=== PATIENT | female | born 1995 | race Hispanic/Latino ===

== ENCOUNTER 2017-06-20 11:14 | Emergency (ER) | payer SELFPAY ==
[2017-06-20 12:16] LABS: Urine Blood NEGATIVE (NEG); Urine Glucose NEGATIVE (NEG); Urine Protein NEGATIVE (NEG)
--- NOTE | 2017-06-20 12:48 | EDPHYS ---
Physician Documentation [facility] Name: Lacy Reyna Age: 22 yrs Sex: Female : 1995 Arrival Date: 06/20/2017 Time: 11:16 Bed 19 Private MD: ED Physician Vinny Sexton HPI: 06/20 12:28 This 22 yrs old Female presents to ER via Ambulatory with complaints of wa Abdominal Pain. 12:28 The patient presents with abdominal pain in the lower abdomen. Onset: The wa symptoms/episode began/occurred 3 day(s) ago. The symptoms do not radiate. Associated signs and symptoms: Pertinent positives: nausea and vomiting. The symptoms are described as crampy. Modifying factors: The symptoms are alleviated by nothing, the symptoms are aggravated by nothing. Severity of pain: At its worst the pain was moderate in the emergency department the pain is unchanged. The patient has not experienced similar symptoms in the past. The patient has not recently seen a physician. 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 - Social history:: Smoking status: Patient/guardian denies using tobacco. - Family history:: not pertinent. - Hospitalizations: : No recent hospitalization is reported. ROS: 12:29 Constitutional: Negative for fever, chills, and weight loss, Eyes: Negative for injury, wa pain, redness, and discharge, ENT: Negative for injury, pain, and discharge, Neck: Negative for injury, pain, and swelling, Cardiovascular: Negative for chest pain, palpitations, and edema, Respiratory: Negative for shortness of breath, cough, wheezing, and pleuritic chest pain, Back: Negative for injury and pain, MS/Extremity: Negative for injury and deformity, Skin: Negative for injury, rash, and discoloration, Neuro: Negative for headache, weakness, numbness, tingling, and seizure. 12:29 Abdomen/GI: Positive for abdominal pain, of the suprapubic area, right lower quadrant and left lower quadrant. 12:29 : Positive for pelvic pain, Negative for urinary symptoms, urinary frequency, hematuria. 12:29 All other systems are negative. Exam: 12:30 Constitutional: This is a well developed, well nourished patient who is awake, alert, wa and in no acute distress. Head/Face: Normocephalic, atraumatic. Eyes: Pupils equal round and reactive to light, extra-ocular motions intact. Lids and lashes normal. Conjunctiva and sclera are non-icteric and not injected. Cornea within normal limits. Periorbital areas with no swelling, redness, or edema. ENT: Nares patent. No nasal discharge, no septal abnormalities noted. Tympanic membranes are normal and external auditory canals are clear. Oropharynx with no redness, swelling, or masses, exudates, or evidence of obstruction, uvula midline. Mucous membranes moist. Neck: Trachea midline, no thyromegaly or masses palpated, and no cervical lymphadenopathy. Supple, full range of motion without nuchal rigidity, or vertebral point tenderness. No Meningismus. Cardiovascular: Regular rate and rhythm with a normal S1 and S2. No gallops, murmurs, or rubs. Normal PMI, no JVD. No pulse deficits. Respiratory: Lungs have equal breath sounds bilaterally, clear to auscultation and percussion. No rales, rhonchi or wheezes noted. No increased work of breathing, no retractions or nasal flaring. Back: No spinal tenderness. No costovertebral tenderness. Full range of motion. Skin: Warm, dry with normal turgor. Normal color with no rashes, no lesions, and no evidence of cellulitis. MS/ Extremity: Pulses equal, no cyanosis. Neurovascular intact. Full, normal range of motion. Neuro: Awake and alert, GCS 15, oriented to person, place, time, and situation. Cranial nerves II-XII grossly intact. Motor strength 5/5 in all extremities. Sensory grossly intact. Cerebellar exam normal. Normal gait. Psych: Awake, alert, with orientation to person, place and time. Behavior, mood, and affect are within normal limits. 12:30 Abdomen/GI: Inspection: abdomen appears normal, Bowel sounds: normal, in all quadrants, Palpation: mild abdominal tenderness, in the right lower quadrant. Vital Signs: 11:23 BP 179 / 97; Pulse 102; Resp 18; Temp 97.9; Pulse Ox 99% ; Weight 146.96 kg; Pain 10/10;hb 12:20 BP 162 / 94; Pulse 99; Resp 19; Pulse Ox 98% on R/A; rb1 MDM: 11:51 Patient medically screened. wy 12:31 Differential diagnosis: r/o UTI. r/o preg (late on menses). r/o ovarian pathology vs wa appy. 12:44 Data reviewed: vital signs, nurses notes. Test interpretation: by ED physician or wy midlevel provider: . 12:46 Response to treatment: the patient's symptoms have markedly improved after treatment. wy 12:49 ED course: refused CT and further work up. states only came to make sure she is not wa preg as a home preg was equivocal. 06/20 12:14 Order name: Urine Dipstick--Ancillary (enter results) 06/20 12:14 Order name: Urine --Ancillary (enter results) 06/20 12:17 Order name: Urine --Ancillary; Complete Time: 12:21 EDPA 06/20 12:17 Order name: Urine Dipstick-Ancillary; Complete Time: 12:21 EDPA 06/20 12:23 Order name: Basic Metabolic Panel wy 06/20 12:23 Order name: CBC with Diff wy 06/20 12:23 Order name: Creatinine for Radiology wy 06/20 12:23 Order name: Hepatic Function wy 06/20 12:23 Order name: CT Abd/Pelvis - W/Contrast wy 06/20 12:23 Order name: Urine Dipstick-Ancillary (obtain specimen); Complete Time: 12:59 wy Administered Medications: 12:57 Not Given (physician cancelled): NS 0.9% 1000 ml IV at 1 bolus Per protocol; 1000 mL rb1 bolus 12:58 Not Given (physician cancelled): TORadol 30 mg IVP once rb1 12:58 Not Given (physician cancelled): Zofran 4 mg IVP once; over 2 minutes rb1 Disposition: 06/20/17 12:47 Discharged to Home. Impression: Pelvic cramps. - Condition is Stable. - Discharge Instructions: Pelvic Pain, Female, [id number]. - Prescriptions for Ibuprofen 600 mg Oral Tablet - take 1 tablet by ORAL route every 8 hours As needed take with food; 30 tablet. - Medication Reconciliation Form, Thank You Letter, Antibiotic Education, Prescription Opioid Use form. - Follow up: Private Physician; When: 2 - 3 days. - Notes: return to ER for worsening concerns immediately. follow up with your doctor within 2-3 days Signatures: Dispatcher [employer] Rachael Pickett, RN RN [facility] Maddison aPtel RN RN Vinny Sexton MD MD wy Corrections: (The following items were deleted from the chart) 12:58 12:23 IV Saline Lock ordered. [facility] 12:59 12:23 Labs collected and sent ordered. [facility]
--- NOTE | 2017-06-20 12:48 | ER ---
Nurse's Notes [facility] Name: Lacy Reyna Age: 22 yrs Sex: Female : 1995 Arrival Date: 06/20/2017 Time: 11:16 Bed 19 Private MD: Diagnosis: Pelvic cramps Presentation: 06/20 11:21 Presenting complaint: Patient states: N/V x 1 week, sharp lower abdominal pain x 2 hb days. "I usually get like this before my period but I was supposed to start 2 days ago." LMP 05/22/17. Transition of care: patient was not received from another setting of care. Onset of symptoms is unknown. Care prior to arrival: None. 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 - Social history:: Smoking status: Patient/guardian denies using tobacco. - Family history:: not pertinent. - Hospitalizations: : No recent hospitalization is reported. Screenin:46 Abuse screen: Denies threats or abuse. Nutritional screening: No deficits noted. rb1 Tuberculosis screening: No symptoms or risk factors identified. Fall Risk None identified. Assessment: 11:46 General: Appears in no apparent distress. comfortable, obese, unkempt, Behavior is rb1 calm, cooperative, Denies fever. Pain: Complains of pain in suprapubic area Pain currently is 9 out of 10 on a pain scale. Pain began 2-3 days ago. Neuro: Level of Consciousness is awake, alert, obeys commands, Oriented to person, place, time, situation. Cardiovascular: Capillary refill < 3 seconds is brisk in bilateral fingers. Respiratory: Airway is patent Respiratory effort is even, unlabored, Respiratory pattern is regular, symmetrical. GI: Bowel sounds present X 4 quads. Abdomen is tender to palpation in suprapubic area. : No signs and/or symptoms were reported regarding the genitourinary system. Derm: Skin is dry, Skin is normal, Skin temperature is warm. Musculoskeletal: Range of motion: intact in all extremities. 11:46 : Denies vaginal bleeding. rb1 12:40 Reassessment: Patient appears in no apparent distress at this time. No changes from rb1 previously documented assessment. 12:47 Reassessment: Dr. Sexton canceled the IV and medications that were ordered because the rb1 pt. lied about why she came to the ER. Vital Signs: 11:23 BP 179 / 97; Pulse 102; Resp 18; Temp 97.9; Pulse Ox 99% ; Weight 146.96 kg; Pain 10/10;hb 12:20 BP 162 / 94; Pulse 99; Resp 19; Pulse Ox 98% on R/A; rb1 ED Course: 11:16 Patient arrived in ED. as 11:23 Triage completed. hb 11:24 Arm band placed on right wrist. hb 11:46 Patient has correct armband on for positive identification. Bed in low position. Call rb1 light in reach. Side rails up X 1. Pulse ox on. NIBP on. 11:47 Rachael Noguera, RN is Primary Nurse. rb1 11:51 Vinny Sexton MD is Attending Physician. wa 13:02 No provider procedures requiring assistance completed. Patient did not have IV access rb1 during this emergency room visit. Administered Medications: 12:57 Not Given (physician cancelled): NS 0.9% 1000 ml IV at 1 bolus Per protocol; 1000 mL rb1 bolus 12:58 Not Given (physician cancelled): TORadol 30 mg IVP once rb1 12:58 Not Given (physician cancelled): Zofran 4 mg IVP once; over 2 minutes rb1 Outcome: 12:47 Discharge ordered by . wa 13:02 Discharged to home ambulatory, with family. rb1 13:02 Condition: stable 13:02 Discharge instructions given to patient, Instructed on discharge instructions, follow up and referral plans. medication usage, Demonstrated understanding of instructions, follow-up care, medications, Prescriptions given X 1. 13:03 Patient left the ED. rb1 Signatures: Cheyanne Moreira Rebecca, RN RN [facility] Maddison Patel RN RN Vinny Sexton MD MD dc
[2017-06-20] MEDS ORDERED: ONDANSETRON 4 MG/2 ML VIAL ONE (13:09)
[2017-06-20] MEDS ORDERED: NA CHLORIDE 0.9% 0 ML ONE (13:09)
[2017-06-20] MEDS ORDERED: KETOROLAC 30 MG/ML INJ ONE (13:09)
== END 2017-06-20 13:03 | disposition home or self-care (01) ==
LOC: ER 11:14
DX: R10.2 Pelvic and perineal pain (principal)
CPT/HCPCS: 81003; 81025; 99283; J2405; J7030

== ENCOUNTER 2019-03-28 12:47 | Emergency (ER) | payer SELFPAY ==
[2019-03-28 14:12] LABS: Urine Blood 2+ (NEG); Urine Glucose NEGATIVE (NEG); Urine Protein NEGATIVE (NEG); Urine Specific Gravity 1.015 (1.005-1.030)
[2019-03-28 14:45] LABS: Absolute Lymphocytes (CBC) 1.8 K/uL (0.7-4.9); Basophils % 0.6 % (0-1.3); Hematocrit 39.2 % (36.0-45.0); MPV 8.8 fL (7.6-11.3); RBC Red Blood Cell Count 4.66 M/uL (3.86-4.86)
[2019-03-28 15:22] LABS: BUN Blood Urea Nitrogen 8 mg/dL (7-18); Bicarbonate 26 mmol/L (21-32); Glucose Level 91 mg/dL (74-106); HCG, Quantitative 8837 mIU/mL (1-3); Potassium 3.9 mmol/L (3.5-5.1); Sodium Level 139 mmol/L (136-145)
--- NOTE | 2019-03-28 16:50 | ER ---
Nurse's Notes [facility] Name: Lacy Reyna Age: 24 yrs Sex: Female : 1995 Arrival Date: 03/28/2019 Time: 12:49 Bed 30 Private MD: Diagnosis: Threatened Presentation: 03/28 12:56 Presenting complaint: Patient states: +home UPT on 03/11, reports ongoing vaginal sr5 bleeding since then. Pt concerned about miscarriage. Reports vaginal spotting with "clots" having to change pads approx 2 times per day. Transition of care: patient was not received from another setting of care. Onset of symptoms was March 11, 2019. Initial Sepsis Screen: Does the patient meet any 2 criteria? No. Patient's initial sepsis screen is negative. Does the patient have a suspected source of infection? No. Patient's initial sepsis screen is negative. Care prior to arrival: None. 12:56 Method Of Arrival: Ambulatory sr5 12:56 Acuity: FILI 3 sr5 13:05 Risk Assessment: Do you want to hurt yourself or someone else? Patient reports no rb1 desire to harm self or others. Triage Assessment: 12:58 General: Appears in no apparent distress. Behavior is calm, cooperative. Pain: Denies sr5 pain. GI: Patient currently denies cramping. : No signs and/or symptoms were reported regarding the genitourinary system. : Reports vaginal bleeding that is. 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 - Social history:: Smoking status: Patient/guardian denies using tobacco, never smoked. - Ebola Screening: : Patient negative for fever greater than or equal to 101.5 degrees Fahrenheit, and additional compatible Ebola Virus Disease symptoms. Screenin:05 Abuse screen: Denies threats or abuse. Nutritional screening: No deficits noted. rb1 Tuberculosis screening: No symptoms or risk factors identified. Fall Risk None identified. Assessment: 13:05 General: Appears in no apparent distress. comfortable, obese, Behavior is calm, rb1 cooperative, Denies fever. Pain: Denies pain. Neuro: Level of Consciousness is awake, alert, obeys commands, Oriented to person, place, time, situation. Neuro: Reports dizziness. Cardiovascular: Capillary refill < 3 seconds is brisk in bilateral fingers. Respiratory: Airway is patent Respiratory effort is even, unlabored, Respiratory pattern is regular, symmetrical. GI: Reports nausea. : Reports vaginal bleeding that is spotty, Faith tinge with small red clots. Derm: Skin is pink, warm \\T\\ dry. Musculoskeletal: Reports Bilateral breasts are tender. 14:00 Reassessment: Patient appears in no apparent distress at this time. No changes from rb1 previously documented assessment. 15:00 Reassessment: Patient appears in no apparent distress at this time. Patient and/or rb1 family updated on plan of care and expected duration. Pain level reassessed. Patient is alert, oriented x 3, equal unlabored respirations, skin warm/dry/pink. Patient denies pain at this time. 16:00 Reassessment: Patient appears in no apparent distress at this time. No changes from rb1 previously documented assessment. 16:59 Reassessment: Patient appears in no apparent distress at this time. Patient is alert, ca1 oriented x 3, equal unlabored respirations, skin warm/dry/pink. Vital Signs: 12:58 BP 140 / 114; Pulse 80; Resp 18; Temp 98.2; Pulse Ox 100% ; Weight 138.8 kg (R); Height sr5 5 ft. 4 in. (162.56 cm); Pain 0/10; 14:38 BP 142 / 87; Pulse 78; Resp 19; Pulse Ox 100% on R/A; Pain 0/10; rb1 15:38 rb1 16:47 BP 152 / 98; Pulse 81; Resp 19; Pulse Ox 98% ; Pain 0/10; rb1 12:58 Body Mass Index 52.52 (138.80 kg, 162.56 cm) sr5 15:38 Pt. is in US rb1 ED Course: 12:49 Patient arrived in ED. rg4 12:50 Jessica Subramanian FNP-C [facility]. kb 12:50 Rosalino Randle MD is Attending Physician. kb 12:58 Triage completed. sr5 12:58 Arm band placed on. sr5 13:05 Rachael Noguera, RN is Primary Nurse. rb1 13:05 Patient has correct armband on for positive identification. Bed in low position. Call rb1 light in reach. Side rails up X 1. Pulse ox on. NIBP on. 13:50 Missed attempt(s): 22 gauge in right forearm. Bleeding controlled, band aid applied, jp3 catheter tip intact. 14:05 Missed attempt(s): 22 gauge in left forearm. Bleeding controlled, band aid applied, jp3 catheter tip intact. Patient maintains SpO2 saturation greater than 95% on room air. 16:32 US Transvaginal Ob In Process Unspecified. EDMS 17:00 No provider procedures requiring assistance completed. IV discontinued, intact, ca1 bleeding controlled, No redness/swelling at site. Pressure dressing applied. Administered Medications: No medications were administered Point of Care Testing: Urine : 13:40 hCG Reading: Positive; Control Reading: Positive; rb1 Outcome: 16:49 Discharge ordered by . kb 17:00 Discharged to home ambulatory, with significant other. ca1 17:00 Condition: stable 17:00 Discharge instructions given to patient, Instructed on discharge instructions, follow up and referral plans. Demonstrated understanding of instructions, follow-up care. 17:01 Patient left the ED. ca1 Signatures: Dispatcher [employer] EDMS Jessica Subramanian, DIVISION PLANT ENGINEER-C DIVISION PLANT ENGINEER-Ckb Rachael Noguera, RN RN rb1 Mars Walker RN RN sr5 Hollie East rg4 David De Jesus jp3 Brunilda Eason RN RN ca1 Corrections: (The following items were deleted from the chart) 13:01 12:56 Presenting complaint: Patient states: +home UPT on 03/11, reports ongoing vaginal sr5 bleeding since then. Pt concerned about miscarriage. A1. Reports vaginal spotting with "clots" having to change pads approx 2 times per day sr5 16:39 16:00 BP 156 / 92; Pulse 65bpm; Resp 17bpm; Pulse Ox 99%; rb1 rb1
--- NOTE | 2019-03-28 16:51 | EDPHYS ---
Physician Documentation [facility] Name: Lacy Reyna Age: 24 yrs Sex: Female : 1995 Arrival Date: 03/28/2019 Time: 12:49 Bed 30 Private MD: ED Physician Rosalino Randle HPI: 03/28 14:31 This 24 yrs old Female presents to ER via Ambulatory with complaints of kb Vaginal Bleeding, + Preg <12wks. 14:31 The patient presents to the emergency department with vaginal bleeding, described as kb spotting. course: care: none. Previous pregnancies: in previous pregnancies patient has had. Associated signs and symptoms: Pertinent positives: vaginal bleeding. The patient has not experienced similar symptoms in the past. The patient has not recently seen a physician. Pt reports she took a test on 03/11/19 that was positive. Has had vaginal bleeding since then. Reports it was heavy for a day, but has been intermittent spotting since then. Had miscarriage 5 months ago. . 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 - Social history:: Smoking status: Patient/guardian denies using tobacco, never smoked. - Ebola Screening: : Patient negative for fever greater than or equal to 101.5 degrees Fahrenheit, and additional compatible Ebola Virus Disease symptoms. ROS: 14:30 Constitutional: Negative for fever, chills, and weight loss, ENT: Negative for injury, kb pain, and discharge, Neck: Negative for injury, pain, and swelling, Cardiovascular: Negative for chest pain, palpitations, and edema, Respiratory: Negative for shortness of breath, cough, wheezing, and pleuritic chest pain, Abdomen/GI: Negative for abdominal pain, nausea, vomiting, diarrhea, and constipation, Back: Negative for injury and pain, MS/Extremity: Negative for injury and deformity, Skin: Negative for injury, rash, and discoloration, Neuro: Negative for headache, weakness, numbness, tingling, and seizure. 14:30 : Positive for vaginal bleeding. Exam: 14:31 Constitutional: This is a well developed, well nourished patient who is awake, alert, kb and in no acute distress. Head/Face: Normocephalic, atraumatic. ENT: Nares patent. No nasal discharge, no septal abnormalities noted. Tympanic membranes are normal and external auditory canals are clear. Oropharynx with no redness, swelling, or masses, exudates, or evidence of obstruction, uvula midline. Mucous membranes moist. Neck: Trachea midline, no thyromegaly or masses palpated, and no cervical lymphadenopathy. Supple, full range of motion without nuchal rigidity, or vertebral point tenderness. No Meningismus. Chest/axilla: Normal chest wall appearance and motion. Nontender with no deformity. No lesions are appreciated. Cardiovascular: Regular rate and rhythm with a normal S1 and S2. No gallops, murmurs, or rubs. Normal PMI, no JVD. No pulse deficits. Respiratory: Lungs have equal breath sounds bilaterally, clear to auscultation and percussion. No rales, rhonchi or wheezes noted. No increased work of breathing, no retractions or nasal flaring. Abdomen/GI: Soft, non-tender, with normal bowel sounds. No distension or tympany. No guarding or rebound. No evidence of tenderness throughout. Back: No spinal tenderness. No costovertebral tenderness. Full range of motion. Skin: Warm, dry with normal turgor. Normal color with no rashes, no lesions, and no evidence of cellulitis. MS/ Extremity: Pulses equal, no cyanosis. Neurovascular intact. Full, normal range of motion. Neuro: Awake and alert, GCS 15, oriented to person, place, time, and situation. Cranial nerves II-XII grossly intact. Motor strength 5/5 in all extremities. Sensory grossly intact. Cerebellar exam normal. Normal gait. Vital Signs: 12:58 BP 140 / 114; Pulse 80; Resp 18; Temp 98.2; Pulse Ox 100% ; Weight 138.8 kg (R); Height sr5 5 ft. 4 in. (162.56 cm); Pain 0/10; 14:38 BP 142 / 87; Pulse 78; Resp 19; Pulse Ox 100% on R/A; Pain 0/10; rb1 15:38 rb1 16:47 BP 152 / 98; Pulse 81; Resp 19; Pulse Ox 98% ; Pain 0/10; rb1 12:58 Body Mass Index 52.52 (138.80 kg, 162.56 cm) sr5 15:38 Pt. is in US rb1 MDM: 13:01 Patient medically screened. kb 14:30 Data reviewed: vital signs, nurses notes. Data interpreted: Pulse oximetry: on room air kb is 100 %. Interpretation: normal. 16:49 Counseling: I had a detailed discussion with the patient and/or guardian regarding: the kb historical points, exam findings, and any diagnostic results supporting the discharge/admit diagnosis, lab results, radiology results, the need for outpatient follow up, an OB/Gyne specialist, to return to the emergency department if symptoms worsen or persist or if there are any questions or concerns that arise at home. 03/28 12:59 Order name: Quantitative Hcg; Complete Time: 15:26 kb 03/28 12:59 Order name: Abo/rh Typing; Complete Time: 15:19 kb 03/28 12:59 Order name: Basic Metabolic Panel; Complete Time: 15:26 kb 03/28 12:59 Order name: CBC with Diff; Complete Time: 14:50 kb 03/28 13:59 Order name: Urine Dipstick--Ancillary (enter results); Complete Time: 14:15 eb 03/28 13:59 Order name: Urine --Ancillary (enter results); Complete Time: 14:15 eb 03/28 12:59 Order name: Urine Test (obtain specimen); Complete Time: 13:30 kb 03/28 12:59 Order name: IV Saline Lock; Complete Time: 14:48 kb 03/28 12:59 Order name: Labs collected and sent; Complete Time: 14:48 kb 03/28 12:59 Order name: NPO; Complete Time: 14:48 kb 03/28 12:59 Order name: Urine Dipstick-Ancillary (obtain specimen); Complete Time: 13:29 kb 03/28 15:26 Order name: US Transvaginal Ob kb 03/28 16:08 Order name: ABO/RH no charge; Complete Time: 16:13 EDMS Administered Medications: No medications were administered Point of Care Testing: Urine : 13:40 hCG Reading: Positive; Control Reading: Positive; rb1 Disposition: 19:06 Co-signature as Attending Physician, Rosalino Randle MD. rn Disposition: 03/28/19 16:49 Discharged to Home. Impression: Threatened . - Condition is Stable. - Discharge Instructions: Vaginal Bleeding During , First Trimester, Threatened Miscarriage, [id number], Pelvic Rest. - Medication Reconciliation Form, Thank You Letter, Antibiotic Education, Prescription Opioid Use form. - Follow up: Emergency Department; When: As needed; Reason: Worsening of condition. Follow up: Private Physician; When: 2 - 3 days; Reason: Recheck today's complaints, Continuance of care, Re-evaluation by your physician. Signatures: Dispatcher [employer] EDJessica Basilio, VP HR DIVERSITY-C VP HR DIVERSITY-Rosalino Suresh MD MD rn Resecker, Mars RN RN sr5 Brunilda Eason RN RN ca1 Corrections: (The following items were deleted from the chart) 17:01 16:49 03/28/2019 16:49 Discharged to Home. Impression: Threatened . Condition ca1 is Stable. Forms are Medication Reconciliation Form, Thank You Letter, Antibiotic Education, Prescription Opioid Use. Follow up: Emergency Department; When: As needed; Reason: Worsening of condition. Follow up: Private Physician; When: 2 - 3 days; Reason: Recheck today's complaints, Continuance of care, Re-evaluation by your physician. kb
--- NOTE | 2019-03-28 17:00 | RAD REPORT ---
EXAM DESCRIPTION: US - Transvaginal OB - 03/28/2019 4:31 pm CLINICAL HISTORY: , vaginal bleeding COMPARISON: None. FINDINGS: Both ovaries are identified with normal blood flow in the ovarian stroma. No adnexal mass identified. A normal shaped intrauterine gestational sac is present in the fundus. Yolk sac is present with a sma ll pole. Heart rate was difficult to obtain but appears to measure 123 BPM. Tyler-rump length c orresponds to 6 week 1 day age. Calculated HUMBERTO would be 11/20/2019. Fluid is present in the cervix an d lower uterine segment. IMPRESSION: Single 6 week 1 day IUP in the fundal portion of the endometrial cavity. Heart rate is 1 23 BPM. No large hematoma or mass in the endometrial cavity. Patient does have fluid in the cervical canal an d lower uterine segment. This fluid is not typical and is still considered at risk. No ovarian or adnexal abnormality.
[2019-03-28 17:54] VITALS: TEMP 98.2
[2019-03-28 17:57] VITALS: BP 152/98; O2SAT 98
== END 2019-03-28 17:01 | disposition home or self-care (01) ==
LOC: ER 12:47
DX: O20.0 Threatened abortion (principal); Z3A.01 Less than 8 weeks gestation of pregnancy
CPT/HCPCS: 36415; 76817; 80048; 81003; 81025; 84702; 85025; 86900; 86901; 99284

== ENCOUNTER 2019-04-25 10:16 | Emergency (ER) | payer OTHER, SELFPAY ==
--- OUTSIDE RECORDS SUMMARY | 2019-04-25 10:19 | XMS REPORT | Continuity of Care Document ---
:1995 Author Organization [facility] Address [address] [place] [address] Phone Unavailable Care Team Providers Name Role Phone PHYSICIAN, NO Primary Care Physician Unavailable Insurance Providers Guarantor Lacy Granado Address [address] [place] [address] Email NA Payer Self Pay Insurance Subscriber's Name Lacy Granado Relationship Self / Same As Patient Group Number NA Group Name NA Advance Directives Directive Response Recorded Date/Time Advance Directives No 10/13/15 5:25am Advance Directive on File No 01/21/18 7:13pm Directive to Physicians/Living Will No 10/13/15 5:25am Health Care Proxy No 10/13/15 5:25am Organ Donor No 10/13/15 5:50am Medical Power of Quality Rep No 10/13/15 5:25am Patient/Family Given Education Material R/T Y - 01/21/18..MA 01/21/18 8: 39pm Directives? Chief Complaint and Reason for Visit Chief Complaint HEENTL Reason for Visit Sinusitis Bronchitis Problems Medical Problem Onset Date Status Anxiety Unknown Acute Chest pain Unknown Acute Past Problems Medical Problem Onset Date Status Bronchitis Unknown Acute DUB (dysfunctional uterine bleeding) Unknown Acute Sinusitis Unknown Acute Medications No medication information available. Social History Social History Problem Response Recorded Date/Time Onset Date Status Hx Physical Abuse No 01/21/2018 7:13pm Not Applicable Not Applicable Smoking Status Start Date Stop Date Never smoker Hospital Discharge Instructions No hospital discharge instruction information available. Plan of Care Discharge Date 01/21/18 8:35pm Instructions/Education Provided Sinusitis, Adult Acute Bronchitis, Adult, [id number] Forms Provided Portal Welcome Letter Prescriptions See Medication Section Referrals NO PHYSICIAN Additional Instructions/Education Prednisone 20mg 2 tabs. twice a day (x5 days ) Ciprofloxacin 500mg 1 tab. twice a day OFF FROM DUTY TOMORROW Functional Status No functional status information available. Allergies, Adverse Reactions, Alerts Allergen Type Severity Reaction Status Last Updated Codeine ([id number]) Allergy Unknown Active 12/27/16 Immunizations No immunization information available. Vital Signs Acute Vital Signs Vital Response Date/Time Blood Pressure 138/84 mm Hg 01/21/2018 8:55pm Pulse Pulse Rate (adult) 82 beats per minute (60 - 100) 01/21/2018 8:55pm Respiratory Rate 16 breaths per minute (10 - 24) 01/21/2018 8:55pm Temperature Source Oral 01/21/2018 8:55pm Height 5 ft 4 in 01/21/2018 7:13pm Weight 299 lb 01/21/2018 7:13pm Body Mass Index 51.3 kg/m^2 01/21/2018 7:13pm Results No relevant diagnostic test, laboratory data and/or discharge summary information available. Procedures No procedure information available. Encounters Encounter Location Arrival/Admit Date Discharge/Depart Date Attending Provider Departed [place] 01/21/18 7:05pm 01/21/18 8:35pm [facility] GALLO MD [facility] Recent Diagnosis
--- OUTSIDE RECORDS SUMMARY | 2019-04-25 10:19 | XMS REPORT ---
:1995 Author Organization [facility] Address [address] [place] [address] Dr. Gabriel. [address] [place] [id number] Care Team Providers Name Role Phone DR SUSANNE BENNETT Unavailable Unavailable Problems This patient has no known problems. Allergies, Adverse Reactions, Alerts This patient has no known allergies or adverse reactions. Medications This patient has no known medications. Encounters Start End Encounter Admission Attending Care Care Encounter Date/Time Date/Time Type Type Clinicians Facility Department ID 2018-10-13 2018-10-14 Emergency E SUSANNE BENNETT [facility] [id number] 21:06:00 00:00:00 2018-10-10 2018-10-10 Emergency [facility] [id number] 01:19:37 01:19:37 2018-10-09 2018-10-[address] [facility] [id number] 22:50:46 22:50:46 Results Test Description Test Time Test Comments Text Results Atomic Results Result Comments BETA HCG QUANTITATIVE SERUM *WW* 2018-10-13 23:21:00 Test Item Value Reference Range Comments BHCG QUANT (test code=A17) 2371.00 mIU/mL BHCGQ (test code=BHCQ) QUANTITATIVE BHCG RESULT INTERPRETATION APPROXIMATE APPROXIMATE GESTATIONAL AGE HCG RANGE (WEEKS) (mIU/mL) 0.2 - 1 5 - 50 1 - 2 50 - 500 2 - 3 100 - 5,000 3 - 4 500 - 10,000 4 - 5 1,000 - 50,000 5 - 6 10,000 - 100,000 6 - 8 15,000 - 200,000 8 - 12 10,000 - 100,000 PRO TIME AND PTT 2018-10-13 22:57:00 Test Item Value Reference Range Comments PT (test code=TT) 11.8 s 9.8-13.6 INR (test code=INR) 1.0 INRH (test code=INRH) SUGGESTED THERAPEUTIC RANGE FOR INR: 2.5 - 3.5 For Patients with Prosthetic Valves or Patients with recurrent Thromboembolic Events 2.0 - 3.0 For Most Other Applications PTT (test code=PTT) 30.7 s 20.2-38.0 PTTH (test code=PTTH) To monitor the effectiveness of heparin, we offer the Anti-Xa (Heparin Assay). It can be used for either unfractionated or LMW Heparin. Order Code is ANTI-XA BASIC METABOLIC PANEL 2018-10-13 22:49:00 Test Item Value Reference Range Comments GLUCOSE (test code=06D) 93 mg/dL 75-100 SODIUM (test code=01A) 136 mmol/L 136-145 POTASSIUM (test code=01B) 4.1 mmol/L 3.6-5.1 CHLORIDE (test code=04A) 104 mmol/L 98-107 CO2 (test code=02A) 25 mmol/L 22-32 ANION GAP (test code=ANG) 11.1 mmol/L BUN (test code=05D) 8 mg/dL 7-18 CREATININE (test code=03E) 0.7 mg/dL 0.4-1.1 BUN/CREA (test code=BCR) 11 12-20 CALCIUM (test code=09D) 8.6 mg/dL 8.3-9.5 CBC (INCLUDES AUTOMATED DIFFERENTIAL)*[id number] 22:40:00 Test Item Value Reference Range Comments WBC (test code=WBC) 10.4 10\S\3/uL 4.5-11.0 RBC (test code=RBC) 4.55 10\S\6/uL 4.30-5.70 HGB (test code=HBG) 12.8 g/dL 12.0-15.5 HCT (test code=HCT) 38.6 % 35.0-44.0 MCV (test code=MCV) 84.8 fL 81.0-99.0 MCH (test code=MCH) 28.1 pg 27.0-31.0 MCHC (test code=MCHC) 33.2 g/dL 32.0-36.0 RDW (test code=RDW) 13.7 % 11.5-14.5 PLT (test code=PLT) 347 10\S\3/uL 130-400 MPV (test code=MPV) 10.2 fL 9.4-12.4 NEUTROP # (test code=NE#) 7.8 10\S\3/uL 1.6-8.0 LYMPH # (test code=LY#) 1.8 10\S\3/uL 1.1-3.5 MONOCYTE # (test code=MO#) 0.6 10\S\3/uL 0.0-1.1 EOSINOPH # (test code=EO#) 0.1 10\S\3/uL 0.0-0.7 BASOPHIL # (test code=BA#) 0.0 10\S\3/uL 0.0-0.3 IG # (test code=IG#) 0.03 10\S\3/uL 0.00-0.06 NRBC # (test code=NRBC#) 0.00 10\S\3/uL 0.00-0.01 NEUTROPH % (test code=NE%) 75.0 % 35.0-73.0 LYMPH % (test code=LY%) 17.4 % 20.0-55.0 MONO % (test code=MO%) 5.9 % 2.5-10.0 EOSINOPH % (test code=EO%) 1.2 % 0.0-5.0 BASOPHIL % (test code=BA%) 0.2 % 0.0-2.0 IG % (test code=IG%) 0.3 % 0.0-0.8 NRBC% (test code=NRBC%) 0.0 % 0.0-0.2 MANDIFF (test code=WMDIFF) NO NO RBC MORPH (test code=WRBCMOR) NORMAL URINALYSIS WITH MICRO *WW*2018-10-13 22:24:00 Test Item Value Reference Range Comments COLOR (test code=COLU) YELLOW YELLOW CLARITY (test code=CLA) SLT HAZY CLEAR GLUCOSE UR (test code=UA GLUCOSE) NEGATIVE NEGATIVE BILI UR (test code=BILE) NEGATIVE NEGATIVE KETONES UR (test code=SNODRA) NEGATIVE NEGATIVE SP GRAVITY (test code=SPGR) 1.010 1.005-1.030 PH UR (test code=PH) 6.0 4.5-8.0 PROTEIN UR (test code=PU) NEGATIVE NEGATIVE UROBIL UR (test code=UROQ) 0.2 EU/dL 0.2-1.0 NITRITE UR (test code=NITRITE) NEGATIVE NEGATIVE BLOOD UR (test code=UA BLOOD) 3+ NEGATIVE LEUK ES UR (test code=LEUK) NEGATIVE NEGATIVE WBC UR (test code=UWBC) 1 /HPF 0-5 RBC UR (test code=URBC) 4 /HPF 0-2 EPITH UR (test code=UEPC) NONE /LPF FEW BACTERIA UR (test code=UBACT) FEW /HPF NONE CAST UR (test code=CAST) /LPF NONE CRYSTAL UR (test code=CRYU) / LPF NONE MUCUS UR (test code=MUC) / HPF NONE AMORPH UR (test code=BETY) / HPF NONE TRICH UR (test code=UTRICH) /HPF NONE YEAST UR (test code=UY) /HPF NONE SPERM UR (test code=USPERM) /HPF NONE
--- OUTSIDE RECORDS SUMMARY | 2019-04-25 10:20 | XMS REPORT | Summary of Care ---
:1995 Author Name Arturo Callahan Address Unavailable Unavailable , Care Team Providers Name Role Phone PAM NEWSOME M.D. Unavailable Unavailable PAM NEWSOME MD Unavailable Unavailable Unavailable Unavailable Unavailable Functional Status Name Dates Details Functional status health issues are not documented Status: Name Dates Details Cognitive status health issues are not documented Status: Problems Name Dates Details Abnormal vaginal bleeding (623.8, N93.9) Status: Active Screening for diabetes mellitus (V77.1, Z13.1) Status: Active Miscarriage (634.90, O03.9) Status: Active Miscarriage (634.90, O03.9) Status: Active Medications Name Dates Details Vitamin 27-0.8 MG Oral Tablet TAKE 1 TABLET DAILY DIRECTED. Quantity: 90 Refills: 2 PAM NEWSOME M.D. Start : 07-Nov-2018 Active Allergies and Adverse Reactions Name Dates Details Allergy history not documented Status: Past Medical History Name Dates Details History of Elevated blood pressure reading (796.2, R03.0) Status: Resolved Procedures Procedure Dates Details History of Section Completed Immunization Name Dates Details Immunizations not documented Family History Name Dates Details Family history of malignant neoplasm of ovary (V16.41, Z80.41) Status: Active Name Dates Details Family history of malignant neoplasm of ovary (V16.41, Z80.41) Status: Active Name Dates Details Family history of diabetes mellitus (V18.0, Z83.3) Status: Active Family history of hypertension (V17.49, Z82.49) Status: Active Family history of malignant neoplasm of ovary (V16.41, Z80.41) Status: Active Social History Name Dates Details Unknown if ever smoked Vital Signs Date Test Result Details No Known Vitals to report Results Date Description Value Details Results not documented Plan of Care Name Dates Details Planned Observations Planned Goals not documented Instructions Name Dates Details Instructions not documented Encounters Appointment; PAM NEWSOME M.D. On: 07-Nov-2018 10:40 Encounter Diagnosis: Problem not documented Appointment; PAM NEWSOME M.D. On: 10-Dec-2018 10:40 Encounter Diagnosis: Problem not documented
[2019-04-25 10:50] LABS: Urine Blood NEGATIVE (NEG); Urine Glucose NEGATIVE (NEG); Urine Protein NEGATIVE (NEG); Urine Specific Gravity 1.015 (1.005-1.030)
[2019-04-25 11:09] LABS: Urine Bacteria 20-50 /HPF (<20); Urine Culture Reflex Order NOT NEEDED; Urine RBC <5 /HPF (NONE SEEN)
[2019-04-25 11:12] LABS: Basophils % 0.4 % (0-1.3); Hematocrit 36.1 % (36.0-45.0); Lymphocytes % 20.6 % (15.3-44.8); MPV 8.7 fL (7.6-11.3); RBC Red Blood Cell Count 4.31 M/uL (3.86-4.86)
[2019-04-25 11:50] LABS: BUN Blood Urea Nitrogen 6 mg/dL (7-18); Bicarbonate 22 mmol/L (21-32); Glucose Level 103 mg/dL (74-106); HCG, Quantitative 34153 mIU/mL (1-3); Potassium 3.6 mmol/L (3.5-5.1); Sodium Level 137 mmol/L (136-145)
--- NOTE | 2019-04-25 12:22 | RAD REPORT ---
EXAM DESCRIPTION: US - Transvaginal OB - 04/25/2019 11:56 am CLINICAL HISTORY: Abd pain;Vaginal bleeding COMPARISON: Transvaginal OB dated 03/28/2019 FINDINGS: A single gestational sac is seen within the uterus. The shape of the sac is within normal limits for gestational age. Within the sac is a single pole with crown-rump length of 3 cm, cor relating to estimated gestational age of 9 weeks 4 days. Estimated date of delivery is 11/24/2019. Heart rate is 164 BPM.. The placenta is not yet developed due to early gestational age. The maternal adnexa and right ovary are within normal limits. Normal Doppler blood flow was demonstra [place] to the right ovary. The left ovary was obscured by bowel gas. IMPRESSION: Single live early intrauterine gestation with estimated gestational age of 9 weeks 4 day s, HUMBERTO 11/24/2019.
--- NOTE | 2019-04-25 12:40 | EDPHYS ---
Physician Documentation [facility] Name: Lacy Reyna Age: 24 yrs Sex: Female : 1995 Arrival Date: 04/25/2019 Time: 10:23 Bed 15 Private MD: ED Physician Rosalino Randle HPI: 04/25 10:52 This 24 yrs old Female presents to ER via Ambulatory with complaints of cp Abdominal Cramping, Back Pain. 10:52 The patient presents to the emergency department with abdominal pain, of the right cp lower quadrant and left lower quadrant, vaginal bleeding, that is light. course: care: none, Ultrasound: the patient had an ultrasound, on March 28, 2019. Previous pregnancies: in previous pregnancies patient has had . 10:52 Associated signs and symptoms: Pertinent positives: vaginal bleeding, Pertinent cp negatives: chest pain, diarrhea, dysuria, fever, ruptured membranes, vomiting. MEDICAL SCHEDULER: 10:37 LMP N/A - Irregular menses ss 10:52 3, Full Term 1, 1, Living 1, Verified cp Historical: - Allergies: 10:37 No Known Allergies; ss - Home Meds: 10:37 None [Active]; ss - PMHx: 10:37 Hypertension; ss - PSHx: 10:37 ; ss - Immunization history:: Adult Immunizations up to date. - Social history:: Smoking status: Patient denies any tobacco usage or history of. - Ebola Screening: : Patient denies exposure to infectious person Patient denies travel to an Ebola-affected area in the 21 days before illness onset. ROS: 10:54 Constitutional: Negative for body aches, chills, fever, poor PO intake. cp 10:54 Cardiovascular: Negative for chest pain. 10:54 Respiratory: Negative for cough, shortness of breath, wheezing. 10:54 Abdomen/GI: Positive for abdominal pain, Negative for vomiting, diarrhea, constipation, black/tarry stool, rectal bleeding. 10:54 Back: Positive for pain at rest, pain with movement, of the lumbar area. 10:54 : Positive for vaginal bleeding. 10:54 Neuro: Negative for altered mental status, dizziness, headache, numbness, weakness. 10:54 All other systems are negative. Exam: 11:00 Constitutional: The patient appears in no acute distress, alert, awake, non-toxic, well cp developed, well nourished, obese. 11:00 Head/Face: Normocephalic, atraumatic. cp 11:00 Eyes: Periorbital structures: appear normal, Conjunctiva: normal, no exudate, no injection, Sclera: no appreciated abnormality, Lids and lashes: appear normal, bilaterally. 11:00 ENT: External ear(s): are unremarkable, Nose: is normal, Mouth: Lips: moist, Oral mucosa: moist, Posterior pharynx: Airway: no evidence of obstruction, patent. 11:00 Neck: ROM/movement: is normal, is supple, without pain, no range of motions limitations, no nuchal rigidity. 11:00 Chest/axilla: Inspection: normal. 11:00 Cardiovascular: Rate: normal, Rhythm: regular. 11:00 Respiratory: the patient does not display signs of respiratory distress, Respirations: normal, no use of accessory muscles, no retractions, labored breathing, is not present, Breath sounds: are clear throughout, no decreased breath sounds. 11:00 Abdomen/GI: Inspection: obese Bowel sounds: active, all quadrants, Palpation: soft, in all quadrants, mild abdominal tenderness, in the right lower quadrant and left lower quadrant, rebound tenderness, is not appreciated, voluntary guarding, is not appreciated, involuntary guarding, is not appreciated. 11:00 Back: pain, that is mild, of the low back area, ROM is normal. 11:00 Skin: no rash present. 11:00 Neuro: Orientation: to person, place \T\ time. Mentation: is normal. 12:35 : Pelvic Exam: The exam is refused by the patient/guardian. The risks and cp consequences are understood by the patient. Vital Signs: 10:37 Resp 21; Weight 137.89 kg; Height 5 ft. 3 in. (160.02 cm); Pain 8/10; ss 10:38 BP 148 / 94; Pulse 99; Temp 98.4(O); Pulse Ox 99% on R/A; ss 10:37 Body Mass Index 53.85 (137.89 kg, 160.02 cm) ss MDM: 10:39 Patient medically screened. cp 11:00 Differential diagnosis: STD, threatened Ab, inevitable Ab, complete Ab, retained Ab, cp ectopic . 12:40 Data reviewed: vital signs, nurses notes, lab test result(s), radiologic studies, cp ultrasound. 12:40 Counseling: I had a detailed discussion with the patient and/or guardian regarding: the cp historical points, exam findings, and any diagnostic results supporting the discharge/admit diagnosis, lab results, radiology results, the need for outpatient follow up, for definitive care, an OB/Gyne specialist, to return to the emergency department if symptoms worsen or persist or if there are any questions or concerns that arise at home. Response to treatment: the patient's symptoms have markedly improved after treatment. ED course: VSS. Discussed results of labs and today's US. Will discharge to home with pelvic rest precautions and recommend f/u with MEDICAL SCHEDULER. 04/25 10:46 Order name: Quantitative Hcg; Complete Time: 11:53 04/25 11:53 Interpretation: Reviewed. 04/25 10:46 Order name: Basic Metabolic Panel; Complete Time: 11:53 04/25 11:53 Interpretation: Normal except: BUN 6. 04/25 10:46 Order name: CBC with Diff; Complete Time: 11:42 04/25 11:44 Interpretation: Reviewed. 04/25 10:47 Order name: Urine Dipstick--Ancillary (enter results); Complete Time: 10:52 [facility] 04/25 10:52 Interpretation: Reviewed. 04/25 10:47 Order name: Urine --Ancillary (enter results); Complete Time: 10:52 em 04/25 10:52 Interpretation: Reviewed. 04/25 10:54 Order name: Urine Microscopic Only; Complete Time: 11:42 04/25 11:42 Interpretation: Normal except: UBACT 20-50; SQEPI 20-50. 04/25 10:46 Order name: Urine Test (obtain specimen); Complete Time: 11:00 04/25 10:46 Order name: Labs collected and sent; Complete Time: 11:09 04/25 11:13 Order name: Transvaginal OB; Complete Time: 12:31 EDME 04/25 10:46 Order name: NPO; Complete Time: 11:00 04/25 10:46 Order name: Urine Dipstick-Ancillary (obtain specimen); Complete Time: 11:01 cp Administered Medications: 12:35 CANCELLED (Physician Discretion): Rocephin 1 grams IV at bolus once; Given slow IV push cp per pharmacy instructions 12:50 Drug: Tylenol 1000 mg Route: PO; 12:51 Follow up: Response: No adverse reaction; Medication administered at discharge. ss 12:50 Drug: Macrobid 100 mg Route: PO; ss 12:50 Follow up: Response: No adverse reaction; Medication administered at discharge. Disposition: 13:00 Chart complete. cp 15:14 Co-signature as Attending Physician, Rosalino Randle MD. rn Disposition: 04/25/19 12:40 Discharged to Home. Impression: Urinary tract infection, site not specified, related conditions, unspecified, first trimester, Low back pain, Lower abdominal pain, unspecified, Threatened . - Condition is Stable. - Discharge Instructions: Abdominal Pain During , Back Pain, Adult, Threatened Miscarriage, Urinary Tract Infection, Adult, Pelvic Rest. - Prescriptions for Macrobid 100 mg Oral Capsule - take 1 capsule by ORAL route every 12 hours for 7 days; 14 capsule. - Medication Reconciliation Form, Thank You Letter, Antibiotic Education, Prescription Opioid Use form. - Follow up: Private Physician; When: 2 - 3 days; Reason: Recheck today's complaints. - Problem is new. - Symptoms have improved. Signatures: Dispatcher [employer] Rosalino Caldwell MD MD rn Smirch, Shelby, RN RN ss Page, Corey, PA PA cp Corrections: (The following items were deleted from the chart) 11:13 10:56 OB Complete+US.RAD.BRZ ordered. [facility] 12:35 11:49 Rocephin 1 grams IV at bolus once; Given slow IV push per pharmacy instructions cp ordered. cp 12:43 12:40 04/25/2019 12:40 Discharged to Home. Impression: Urinary tract infection, site cp not specified; related conditions, unspecified, first trimester; Low back pain; Lower abdominal pain, unspecified. Condition is Stable. Forms are Medication Reconciliation Form, Thank You Letter, Antibiotic Education, Prescription Opioid Use. Follow up: Private Physician; When: 2 - 3 days; Reason: Recheck today's complaints. Problem is new. Symptoms have improved. cp 12:52 12:43 04/25/2019 12:40 Discharged to Home. Impression: Urinary tract infection, site ss not specified; related conditions, unspecified, first trimester; Low back pain; Lower abdominal pain, unspecified; Threatened . Condition is Stable. Discharge Instructions: Abdominal Pain During , Urinary Tract Infection, Adult, Threatened Miscarriage, Pelvic Rest. Prescriptions for Macrobid 100 mg Oral Capsule - take 1 capsule by ORAL route every 12 hours for 7 days; 14 capsule. and Forms are Medication Reconciliation Form, Thank You Letter, Antibiotic Education, Prescription Opioid Use. Follow up: Private Physician; When: 2 - 3 days; Reason: Recheck today's complaints. Problem is new. Symptoms have improved. cp
--- NOTE | 2019-04-25 12:40 | ER ---
Nurse's Notes [facility] Name: Lacy Reyna Age: 24 yrs Sex: Female : 1995 Arrival Date: 04/25/2019 Time: 10: Bed 15 Private MD: Diagnosis: Urinary tract infection, site not specified; related conditions, unspecified, first trimester;Low back pain;Lower abdominal pain, unspecified;Threatened Presentation: 04/25 10:34 Presenting complaint: Patient states: Irregular menstrual cycle since 02/19. C/o abd ss cramping and light vaginal bleeding x 2 months. Pt reports she was seen in ER about a month ago for same symptoms, was told she was having a threatened miscarriage and to follow up. Pt has been unable to follow up. Transition of care: patient was not received from another setting of care. Onset of symptoms was February 2019. Risk Assessment: Do you want to hurt yourself or someone else? Patient reports no desire to harm self or others. Initial Sepsis Screen: Does the patient meet any 2 criteria? RR > 20 per min. HR > 90 bpm. Does the patient have a suspected source of infection? No. Patient's initial sepsis screen is negative. Care prior to arrival: None. 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 - Social history:: Smoking status: Patient denies any tobacco usage or history of. - Ebola Screening: : Patient denies exposure to infectious person Patient denies travel to an Ebola-affected area in the 21 days before illness onset. Screenin:46 Abuse screen: Denies threats or abuse. Denies injuries from another. Nutritional ss screening: No deficits noted. Tuberculosis screening: Never had TB. Fall Risk None identified. Assessment: 10:43 General: Appears in no apparent distress. comfortable, obese, Behavior is calm, ss cooperative, Denies fever, feeling ill, fatigue, chills. Pain: Complains of pain in suprapubic area Pain currently is 8 out of 10 on a pain scale. Quality of pain is described as crampy, Pain began 2 months ago Is intermittent. Neuro: Level of Consciousness is awake, alert, obeys commands, Oriented to person, place, time, situation. Respiratory: Airway is patent Respiratory effort is even, unlabored. GI: Bowel sounds present X 4 quads. Abd is soft and non tender X 4 quads. Reports nausea, Patient currently denies diarrhea, vomiting. : Reports light vaginal bleeding x 2 months Denies burning with urination. EENT: Oral mucosa is moist. Derm: Skin is intact, is healthy with good turgor, Skin is dry, Skin is pink, warm \T\ dry. normal. Musculoskeletal: Circulation, motion, and sensation intact. Range of motion: intact in all extremities, Swelling absent. 11:45 Reassessment: Patient appears in no apparent distress at this time. Patient and/or ss family updated on plan of care and expected duration. Pain level reassessed. Patient is alert, oriented x 3, equal unlabored respirations, skin warm/dry/pink. 12:30 Reassessment: Patient appears in no apparent distress at this time. No changes from previously documented assessment. Vital Signs: 10:37 Resp 21; Weight 137.89 kg; Height 5 ft. 3 in. (160.02 cm); Pain 8/10; ss 10:38 BP 148 / 94; Pulse 99; Temp 98.4(O); Pulse Ox 99% on R/A; ss 10:37 Body Mass Index 53.85 (137.89 kg, 160.02 cm) ED Course: 10:23 Patient arrived in ED. mr 10:31 Vladimir Mcneal PA is PHCP. cp 10:31 Rosalino Randle MD is Attending Physician. cp 10:37 Triage completed. ss 10:37 Arm band placed on right wrist. ss 10:46 Patient has correct armband on for positive identification. Bed in low position. Call light in reach. 11:00 Maribeth Payne, PADDY is Primary Nurse. 11:06 Initial lab(s) drawn, by me, sent to lab. Missed attempt(s): 22 gauge in right mh5 antecubital area. 11:09 Urine Microscopic Only Sent. 5 11:09 Quantitative Hcg Sent. mh5 11:09 Basic Metabolic Panel Sent. 5 11:09 CBC with Diff Sent. [facility] 11:50 Transvaginal OB In Process Unspecified. EDLA 19:07 No provider procedures requiring assistance completed. Patient did not have IV access ss during this emergency room visit. Administered Medications: 12:35 CANCELLED (Physician Discretion): Rocephin 1 grams IV at bolus once; Given slow IV push cp per pharmacy instructions 12:50 Drug: Tylenol 1000 mg Route: PO; ss 12:51 Follow up: Response: No adverse reaction; Medication administered at discharge. ss 12:50 Drug: Macrobid 100 mg Route: PO; ss 12:50 Follow up: Response: No adverse reaction; Medication administered at discharge. Outcome: 12:40 Discharge ordered by MD. cp 12:52 Patient left the ED. ss 19:07 Discharged to home ambulatory. ss 19:07 Condition: good 19:07 Discharge instructions given to patient, Instructed on discharge instructions, follow up and referral plans. medication usage, Demonstrated understanding of instructions, follow-up care, medications, Prescriptions given X 1. Signatures: Dispatcher [employer] [facility] Marlo Aye mr Maribeth Payne RN RN ss Vladimir Mcneal PA PA cp Martinez, Maria [facility] Corrections: (The following items were deleted from the chart) 10:43 10:34 Initial Sepsis Screen: Does the patient meet any 2 criteria? No. Patient's ss initial sepsis screen is negative. Does the patient have a suspected source of infection? No. Patient's initial sepsis screen is negative.
[2019-04-25] MEDS ORDERED: ACETAMINOPHEN 500 MG TAB ONE (12:50)
[2019-04-25] MEDS ORDERED: NITROFURAN MACRO 100 MG CAP PO ONE (12:50)
[2019-04-25 13:07] VITALS: BP 148/94; TEMP 98.4; O2SAT 99
== END 2019-04-25 12:52 | disposition home or self-care (01) ==
LOC: ER 10:16
DX: O20.0 Threatened abortion (principal); Z3A.09 9 weeks gestation of pregnancy
CPT/HCPCS: 36415; 76817; 80048; 81003; 81015; 81025; 84702; 85025; 99284

== ENCOUNTER 2019-06-23 13:47 | Emergency (ER) | payer OTHER ==
--- OUTSIDE RECORDS SUMMARY | 2019-06-23 13:49 | XMS REPORT | Summary of Care ---
:1995 [address] [facility] - Health Address [address] [place] [id number] Care Team Providers Name Role Phone Pcp, Patient Does Not Have A Primary Care Provider Encounter Details Date Type Department Care Team Description 05/24/[address] [facility] Doctor Unassigned, No [address] [facility] [place] [address] [address] [place] [address] Allergies No Known Allergiesdocumented as of this encounter (statuses as of 05/24/2019) Medications Medication Sig Dispensed Refills Start Date End Date Status PNV62/FA/OM3/DHA/EPA/FIS Take by mouth. 0 Active H OIL ( GUMMY ORAL) documented as of this encounter (statuses as of 05/24/2019) Active Problems Problem Noted Date Chlamydia infection affecting in first trimester, antepartum 2015 Unsure of last menstrual period as reason for ultrasound scan 03/01/2016 Missed period 03/01/2016 Morbid obesity due to excess calories 03/01/2016 Obesity affecting in first trimester 03/01/2016 High-risk , first trimester 03/01/2016 documented as of this encounter (statuses as of 05/24/2019) Social History Tobacco Use Types Packs/Day Years Used Date Never Smoker Smokeless Tobacco: Never Used Alcohol Use Drinks/Week oz/Week Comments No 0 Standard drinks or equivalent 0.0 Sex Assigned at Date Recorded Not on file Job Start Date Occupation Industry Not on file Not on file Not on file Travel History Travel Start Travel End No recent travel history available. documented as of this encounter Last Filed Vital Signs Not on filedocumented in this encounter Plan of Treatment Date Type Specialty Care Team Description 05/24/2019 Initial Obstetrics & DunbarVirginie MD Visit Gynecology [address] [place] [phone] Health Maintenance Due Date Last Done Comments VARICELLA VACCINES (1 of 2 - 01/01/1997 2-dose childhood series) MENINGOCOCCAL B VACCINES (1 of 2 - 01/01/2006 Risk Bexsero 2-dose series) DTaP,Tdap,and Td Vaccines (1 - 01/01/2007 Tdap) HPV VACCINES (1 - Female 2-dose 01/01/2007 series) PAP SMEAR 01/01/2017 CHLAMYDIA SCREENING 03/09/2017 03/09/2016 INFLUENZA VACCINE (#1) 2018 PNEUMOCOCCAL 0-64 YEARS COMBINED Aged Out No longer eligible based on SERIES patient's age to complete this topic documented as of this encounter Procedures Procedure Name Priority Date/Time Associated Diagnosis Comments ASSIGNMENT OF BENEFITS Routine 05/24/2019 1:12 PM 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
--- OUTSIDE RECORDS SUMMARY | 2019-06-23 13:49 | XMS REPORT | Summary of Care ---
:1995 Author Organization [facility] - [address] [address] Care Team Providers Name Role Phone Pcp, Patient Does Not Have A Primary Care Provider Reason for Visit Reason Comments Orders Panorama- need accurate dates first Encounter Details Date Type Department Care Team Description 05/24/[address] [facility]'s Virginie Dunbar MD Orders (Panorama- need Healthcare- [address] accurate dates first) [address] [place] [address] [address] [id number] [place], [place] [phone] [address] [phone] Allergies No Known Allergiesdocumented as of this [...] trimester 03/01/2016 High-risk , first trimester 03/01/2016 Comments Yes documented as of this encounter (statuses as of 05/24/2019) Social History Tobacco Use Types Packs/Day Years Used Date Never Smoker Smokeless Tobacco: Never Used Alcohol Use Drinks/Week oz/Week Comments No 0 Standard drinks or equivalent 0.0 Comments Yes Sex Assigned at Date Recorded Not on file Job Start Date Occupation Industry Not on file Not on file Not on file Travel History Travel Start Travel End No recent travel history available. documented as of this encounter Last Filed Vital Signs Not on filedocumented in this encounter Plan of Treatment Date Type Specialty Care Team Description 06/07/2019 Routine Obstetrics & Dunbar, MD Virginie Visit Gynecology [address] [place] [phone] Health Maintenance Due Date Last Done [...] this topic documented as of this encounter Results Not on filedocumented in this encounter Insurance Payer Benefit Plan / Subscriber ID Effective Dates Phone Address Type Group [place] [employer] [place] [employer] xxxxxxxxx 2019-Present Medicaid HEALTH PLAN - HEALTH MANAGED MEDICAID documented as of this encounter
--- OUTSIDE RECORDS SUMMARY | 2019-06-23 13:49 | XMS REPORT ---
:1995 Author Organization [facility] Address [address] [place] [address] Dr. Gabriel. [address] [place] [address] Care Team Providers Name Role Phone DR SUSANNE BENNETT Unavailable Unavailable Problems This patient has no known problems. Allergies, Adverse Reactions, Alerts This patient has no known allergies or adverse reactions. Medications This patient has no known medications. Encounters Start End Encounter Admission Attending Care Care Encounter Date/Time Date/Time Type Type Clinicians Facility Department ID 2018-10-13 2018-10-14 Emergency E SUSANNE BENNETT [facility] [id number] 21:06:00 00:00:00 2018-10-10 2018-10-10 Emergency [facility] [id number] 01:19:37 01:19:37 2018-10-09 2018-10-09 Emergency [facility] [id number] 22:50:46 22:50:46 Results Test Description Test Time Test Comments Text Results Atomic Results Result Comments BETA HCG QUANTITATIVE SERUM 2018-10-13 23:21:00 Test Item Value Reference Range [...] 10,000 - 100,000 PRO TIME AND PTT *WW*2018-10-13 22:57:00 Test Item Value Reference Range Comments [...] code=09D) 8.6 mg/dL 8.3-9.5 CBC (INCLUDES AUTOMATED DIFFERENTIAL)*[id number] 22:40:00 Test Item Value Reference Range Comments [...] (test code=BILE) NEGATIVE NEGATIVE KETONES UR (test code=SONDRA) NEGATIVE NEGATIVE SP GRAVITY (test code=SPGR) 1.010 [...]
--- OUTSIDE RECORDS SUMMARY | 2019-06-23 13:49 | XMS REPORT | Summary of Care ---
:1995 Author Organization [facility] Address [address] [place] [address] Care Team Providers Name Role Phone Pcp, Patient Does Not Have A Primary Care Provider Reason for Referral (Routine) Status Reason Specialty Diagnoses / Referred By Referred To Procedures Contact Contact New Request Maternal Diagnoses Supervision of high risk , antepartum Chronic hypertension affecting Morbid obesity Virginie Dunbar, Medicine Procedures CONSULT MATERNAL MEDICINE ULTRASOUND MD [address] [place] [phone] Reason for Visit Reason Comments New OB Visit Encounter Details Date Type Department Care Team Description 05/24/2019 Initial [facility] Women's Virginie Dunbar, Supervision of high risk , antepartum (Primary Dx); Visit Healthcare- MD Missed menses; [address] examination or test, positive result; [address] [facility] Chronic hypertension affecting ; [address] [place], [place] [phone] Allergies No Known Allergiesdocumented as of this encounter (statuses as of 05/25/2019) Medications Medication Sig Dispensed Refills Start Date End Date Status PNV62/FA/OM3/DHA/EPA/FIS Take by mouth. 0 Active H OIL ( GUMMY ORAL) documented as of this encounter (statuses as of 05/25/2019) Active Problems Problem Noted Date Chlamydia infection affecting in first trimester, antepartum 2015 Unsure of last menstrual period as reason for ultrasound scan 03/01/2016 Missed period 03/01/2016 Morbid obesity due to excess calories 03/01/2016 Obesity affecting in first trimester 03/01/2016 High-risk , first trimester 03/01/2016 Estimated Date of Delivery Comments Yes 11/16/2019 Based on last menstrual period of 02/09/2019 documented as of this encounter (statuses as of 05/25/2019) Social History Tobacco Use Types Packs/Day Years Used Date Never Smoker Smokeless Tobacco: Never Used Alcohol Use Drinks/Week oz/Week Comments No 0 Standard drinks or equivalent 0.0 Estimated Date of Delivery Comments Yes 11/16/2019 Based on last menstrual period of 02/09/2019 Sex Assigned at Date Recorded Not on file Job Start Date Occupation Industry Not on file Not on file Not on file Travel History Travel Start Travel End No recent travel history available. documented as of this encounter Last Filed Vital Signs Vital Sign Reading Time Taken Comments Blood Pressure 144/91 05/24/2019 1:54 PM COTTON PICKER OPERATOR Pulse 96 05/24/2019 1:53 PM COTTON PICKER OPERATOR Temperature 36.9 C (98.5 F) 05/24/2019 1:53 PM COTTON PICKER OPERATOR Respiratory Rate 18 05/24/2019 1:53 PM COTTON PICKER OPERATOR Oxygen Saturation - - Inhaled Oxygen Concentration - - Weight 146.1 kg (322 lb) 05/24/2019 1:54 PM COTTON PICKER OPERATOR Height 162.6 cm (5' 4") 05/24/2019 1:53 PM COTTON PICKER OPERATOR Body Mass Index 55.27 05/24/2019 1:53 PM COTTON PICKER OPERATOR documented in this encounter Progress Notes Virginie Dunbar MD - 05/24/2019 1:30 PM CST Chief complaint: Chief Complaint Patient presents with New OB Visit HPI Lacy Reyna is a 24 year old female with a 15w0d IUP by fairly sure dates presents forher initial visit. She denies pain, LOF, or VB. The patient has no reports of headache, visual changes, epigastric pain, significant peripheral or facial edema or shortness of breath. Histories OB History Para Term AB Living 3 1 0 1 1 1 SAB TAB Ectopic Multiple Live Births 0 0 0 0 1 # Outcome Date GA Lbr Rajan/2nd Weight Sex Delivery Anes PTL Lv 3 Current 2 AB 2018 1 09/01/16 36w0d 6 lb (2.722 kg) F , C GAYATRI Past Medical History: Diagnosis Date Chlamydia infection affecting in first trimester, antepartum 2015 Family History Problem Relation Age of Onset Diabetes Mother Hypertension Mother Other - see comments Mother stroke Arthritis NoFHx Asthma NoFHx defects NoFHx Breast Cancer NoFHx Colon Cancer NoFHx Ovarian Cancer NoFHx Uterine Cancer NoFHx Cancer NoFHx Depression NoFHx Genetic NoFHx Heart NoFHx High cholesterol NoFHx Mental retardation NoFHx Neurological NoFHx Osteoporosis NoFHx Psychiatry NoFHx Family Status Relation Name Status Mo (Not Specified) NoFHx (Not Specified) Past Surgical History: Procedure Laterality Date SECTION Social History Socioeconomic History Marital status: Single Spouse name: Not on file Number of children: Not on file Years of education: Not on file Highest education level: Not on file Occupational History Occupation: none Social Needs Financial resource strain: Not on file Food insecurity: Worry: Not on file Inability: Not on file Transportation needs: Medical: Not on file Non-medical: Not on file Tobacco Use Smoking status: Never Smoker Smokeless tobacco: Never Used Substance and Sexual Activity Alcohol use: No Alcohol/week: 0.0 standard drinks Drug use: No Sexual activity: Yes Partners: Male control/protection: None Lifestyle Physical activity: Days per week: Not on file Minutes per session: Not on file Stress: Not on file Relationships Social connections: Talks on phone: Not on file Gets together: Not on file Attends mu-ism service: Not on file Active member of club or organization: Not on file Attends meetings of clubs or organizations: Not on file Relationship status: Not on file Intimate partner violence: Fear of current or ex partner: Not on file Emotionally abused: Not on file Physically abused: Not on file Forced sexual activity: Not on file Other Topics Concern Service Not Asked Blood Transfusions Not Asked Caffeine Concern Not Asked Occupational Exposure Not Asked Hobby Hazards Not Asked Sleep Concern Not Asked Stress Concern Not Asked Weight Concern Not Asked Special Diet Not Asked Back Care Not Asked Exercise Not Asked Bike Helmet Not Asked Seat Belt Yes Self-Exams Not Asked Social History Narrative No domestic abuse or violence Bahai preference:none No cats Social History Substance and Sexual Activity Sexual Activity Yes Partners: Male control/protection: None Genetic Screen Autism / Mental Retardation: No Supa Disease: No Congenital Heart Defect: No Cystic Fibrosis: No Down Syndrome: No Familial Dysautonomia: No Hemophilia or other Blood Disorders: No Refugio Chorea: No Maternal Metabolic Disorder--specify (eg. Type 1 Diabetes, PKU): No Muscular Dystrophy: No Neural Tube Defect: No Recurrent Loss or a Stillbirth: No Sickle Cell Disease or Trait: No Vernon Sachs: No Teratological Substances (specify type & strength/dose) since LMP: No Thalassemia: No Other Inherited Genetic or Chromosomal Disorder (specify): No Labs No new labs Radiology No new radiology. Allergies Lacy has No Known Allergies. Medications Lacy has a current medication list which includes the following prescription(s): vits62/fa/om3/dha/epa. Review of Systems Constitutional: Negative. HENT: Negative. Eyes: Negative. Respiratory: Negative. Breasts: Negative. Cardiovascular: Negative. Gastrointestinal: Negative. Genitourinary: Negative. Musculoskeletal: Negative. Skin: Negative. Neurological: Negative. Psychiatric/Behavioral: Negative. Endocrine: Endocrine negative BP (!) 144/91 | Pulse 96 | Temp 36.9 C (98.5 F) (Oral) | Resp 18 | Ht 5 ' 4" (1.626 m) | Wt 322 lb (146.1 kg) | LMP 02/09/2019 | BMI 55.27 kg/m Pregravid BMI: Could not be calculated Physical Exam Vitals reviewed. Constitutional: She appears well-developed. Her body habitus is obese. Cardiovascular: Regular rate and rhythm. No murmur auscultated. No peripheral edema present. Pulmonary/Chest: Breath sounds clear to auscultation. Normal inspiratory effort. Abdominal: Abdomen is soft. No mass palpated. No tenderness present. There is no hepatomegaly. Neuro/Psychiatric: She has a normal mood and affect. Skin: Skin normal. Breast: Right breast exhibits no mass, no nipple discharge and no tenderness. Left breast exhibits no mass, no nipple discharge and no tenderness. Vagina:Normal vagina. Cervix: No lesion. Closed/thick Uterus: 14-16 week size, difficult to palpate secondary to maternal body habitus Adnexa: Right adnexa without tenderness or mass. Left adnexa without tenderness or mass. Anus/perineum: Normal perineum. In office US with viable IUP, FHTs 152 Assessment/Plan Supervision of high risk , antepartum Plan: Initial testing including: POCT URINALYSIS W/O SPECIFIC GRAVITY, POC TEST, COMP. METABOLIC PANEL (67415), WORKUP, BLOOD BANK, GC & CHLAMYDIA AMPLIFIED ASSAY, HIV 1/2 AG-AB WITH REFLEX, ADC OR ALBINO ONLY - RPR, ADC / LCC - DRUG SCREEN TRIAGE, HCV ANTIBODY, VZV ANTIBODY SCREEN, URINE CULTURE, RUBELLA SCREEN IGG, GLUCOSE 1 HOUR POST PRANDIAL, GALV ONLY - VAGINAL PATHOGENS BY DNA PROBE, PAP Smear-Liquid Based, PAP Smear-Liquid Based, LAB ONLY PAP SMEAR-LIQUID BASED, LAB ONLY PAP SMEAR-LIQUID BASED -Genetic testing on RTC. Will verify dating criteria Chronic hypertension affecting Comment: Multiple documented elevated BP, including 10/09/2018 in ED 147-156/96- 97 and initial PN visit 03/09/[address] George BP 140/79. Not on medical therapy Plan: -Obtain 24 hour urine for protein/creatinine -[facility] referral for co-management Morbid obesity Comment: BMI 55.27. Dietary counseling - avoid sweets, added sugars, sweetened beverages and processed carbs. Concentrate on lean proteins, vegetables and fruits, and healthy fats. Drink plenty of water. Try to get 30 minutes of moderate exercise/walking on most days. Discussed weight gain goal of 11-20lbs for the . Plan: Monitor q visit Previous CD Plan: Discuss delivery plan on RTC Paternal history and family history of cardiac defects Plan: Detailed MFM US -Offer genetic counseling on RTC. Patient offered in previous but did not have done Return to clinic in 2 weeks. This visit did not involve counseling and coordination that comprised more than 50% of the visit time. Virginie Dunbar MD documented in this encounter Plan of Treatment Date Type Specialty Care Team Description 06/07/2019 Routine Obstetrics & Virginie Dunbar MD Visit Gynecology [address] [place] [phone] Name Type Priority Associated Diagnoses Date/Time GC & CHLAMYDIA LAB Routine Missed menses 05/24/2019 4:25 PM AMPLIFIED ASSAY examination or COTTON PICKER OPERATOR test, positive result GALV ONLY - VAGINAL LAB Routine Supervision of high risk 05/24/2019 4:27 PM PATHOGENS BY DNA PROBE , antepartum COTTON PICKER OPERATOR Missed menses examination or test, positive result Chronic hypertension affecting Morbid obesity LAB ONLY PAP LAB Routine Supervision of high risk 05/24/2019 4:27 PM SMEAR-LIQUID BASED , antepartum COTTON PICKER OPERATOR Missed menses examination or test, positive result Chronic hypertension affecting Morbid obesity Name Type Priority Associated Diagnoses Order Schedule COMP. METABOLIC PANEL LAB Routine Missed menses Expected: 05/25/2019, (11249) examination or Expires: 08/22/2019 test, positive result CREATININE U 24 HR LAB Routine Missed menses Expected: 05/25/2019, examination or Expires: 08/22/2019 test, positive result PROTEIN QUANT U/24H LAB Routine Missed menses Expected: 05/24/2019, examination or Expires: 05/24/2020 test, positive result WORKUP, BLOOD LAB Routine Missed menses Expected: 05/24/2019, BANK examination or Expires: 08/22/2019 test, positive result HIV 1/2 AG-AB WITH LAB Routine Missed menses Expected: 05/24/2019, REFLEX examination or Expires: 05/24/2020 test, positive result ADC OR ALBINO ONLY - LAB Routine Missed menses Expected: 05/24/2019, RPR examination or Expires: 08/22/2019 test, positive result HCV ANTIBODY LAB Routine Missed menses Expected: 05/24/2019, examination or Expires: 08/22/2019 test, positive result VZV ANTIBODY SCREEN LAB Routine Missed menses Expected: 05/24/2019, examination or Expires: 08/22/2019 test, positive result URINE CULTURE LAB Routine Missed menses Expected: 05/24/2019, examination or Expires: 08/22/2019 test, positive result RUBELLA SCREEN IGG LAB Routine Missed menses Expected: 05/24/2019, examination or Expires: 08/22/2019 test, positive result GLUCOSE 1 HOUR POST LAB Routine Supervision of high risk Expected: 2019, PRANDIAL , antepartum Expires: 08/22/2019 Missed menses examination or test, positive result Chronic hypertension affecting Morbid obesity LAB ONLY PAP LAB Routine Supervision of high risk Expected: 05/25/2019, SMEAR-LIQUID BASED , antepartum Expires: 05/25/2020 Missed menses examination or test, positive result Chronic hypertension affecting Morbid obesity Health Maintenance Due Date Last Done Comments [...] Procedure Name Priority Date/Time Associated Diagnosis Comments PAP SMEAR-LIQUID Routine 05/24/2019 4:27 Supervision of high BASED-CP PM COTTON PICKER OPERATOR risk , antepartum Missed menses examination or test, positive result Chronic hypertension affecting Morbid obesity ADC / C - DRUG Routine 05/24/2019 4:25 Missed menses Results for this SCREEN TRIAGE PM COTTON PICKER OPERATOR examination procedure are in or test, positive the results result section. POCT URINALYSIS W/O Routine 05/24/2019 Missed menses Results for this SPECIFIC GRAVITY examination procedure are in or test, positive the results result section. POCT TEST Routine 05/24/2019 Missed menses Results for this examination procedure are in or test, positive the results result section. documented in this encounter Results PAP Smear-Liquid Based (05/24/2019 4:27 PM COTTON PICKER OPERATOR) Specimen Swab - CERVIX Performing Organization Address City/State/Zipcode Phone Number [facility] CLIA: [id number], [address] [place] [address] [facility] ADC / LCC - DRUG SCREEN TRIAGE (05/24/2019 4:25 PM COTTON PICKER OPERATOR) BENZO U Negative Negative [facility] AMRIT U Negative Negative [facility] AMPHET Negative Negative [facility] THC Presumptive Positive Negative [facility] (A)Comment: HOSPITAL Confirmation of LABORATORY Presumptive Positive THC result requires physician order. METHADONE Negative Negative [facility] Meth U Negative Negative [facility] OPIATES Negative Negative [facility] Cocaine Metabolite Negative Negative [facility] PROPOXY Negative Negative [facility] Tric U Negative Negative [facility] PCP Negative Negative [facility] OXYCOD Negative Negative [facility] Specimen Urine - URINE, CLEAN CATCH Narrative Performed At Urine Drug Cutoff Ranges [facility] Benzodiazepines: 150 ng/mL Barbiturates: 200 ng/mL Amphetamine: 500 ng/mL Cannabinoids: 50 ng/mL Methadone: 200 ng/mL Methamphetamine: 500 ng/mL Opiates: 100 ng/mL or 2000 ng/mL Cocaine: 150 ng/mL Propoxyphene: 300 ng/mL Tricyclics: 300 ng/mL Oxycodone: 100 ng/mL PCP: 25 ng/mL The results are to be used only for medical (i.e., treatment) purposes. Unconfirmed screening results must not be used for non-medical purposes (e.g., employment testing, legal testing). Performing Organization Address City/State/[facility] Phone Number [facility] CLIA: [id number], [address] [place] [address] POCT TEST (05/24/2019) POCT PREG Positive On board controls acceptable Yes with C Line POCT PREG LOT # POCT PREG TEST DATE Specimen Urine - URINE, CLEAN CATCH POCT URINALYSIS W/O SPECIFIC GRAVITY (05/24/2019) POCT PH U n/a 5 - 8 mg/dl POCT U LEUK EST n/a Negative - Negative POCT U NIT n/a Negative - Negative POCT U PROT neg Negative - Negative POCT U GLU neg Negative - Negative POCT U KETONE n/a Negative - Negative POCT U BLD n/a Negative - Negative Specimen Urine - URINE, CLEAN CATCH documented in this encounter Visit Diagnoses Diagnosis Supervision of high risk , antepartum - Primary Missed menses Absence of menstruation examination or test, positive result Chronic hypertension affecting Morbid obesity documented in this encounter Insurance Payer Benefit Plan / Subscriber ID Effective Dates Phone Address Type Group [facility] xxxxxxxxx 2019-Present Medicaid HEALTH PLAN - [facility] MANAGED MEDICAID documented as of this encounter
--- OUTSIDE RECORDS SUMMARY | 2019-06-23 13:50 | XMS REPORT | Summary of Care ---
:1995 Author Organization [facility] - Health Address [address] [place] [address] Care Team Providers Name Role Phone Pcp, Patient Does Not Have A Primary Care Provider Encounter Details Date Type Department Care Team Description 06/07/2019 Orders Only [facility] Doctor Unassigned, No [address] [facility] [place] [address] [address] [place] [address] Allergies No Known Allergiesdocumented as of this encounter (statuses as of 06/07/2019) Medications Medication Sig Dispensed Refills Start Date End Date Status PNV62/FA/OM3/DHA/EPA/FIS Take by mouth. 0 Active H OIL ( GUMMY ORAL) metroNIDAZOLE (FLAGYL) Take 1 tablet by 14 tablet 0 05/29/2019 Active 500 mg mouth 2 (two) tabletIndications: times daily with Vaginitis affecting meals. , antepartum documented as of this encounter (statuses as of 06/07/2019) Active Problems Problem Noted Date Chlamydia infection [...] as of this encounter (statuses as of 06/07/2019) Social History Tobacco Use Types Packs/Day Years [...] Date Type Specialty Care Team Description 06/07/2019 Pest Control Worker Helper Visit Phlebotomy Virginie Dunbar MD [address] [place] [phone] Pob, Adc Lab Main 06/17/2019 Office Visit OB Satellites Faculty, Flako Rmchp Mfm 06/25/2019 Pest Control Worker Helper Visit Maternal Medicine 06/27/2019 Routine Obstetrics & Virginie Dunbar MD Visit Gynecology [address] [place] [phone] Health Maintenance Due Date Last Done Comments VARICELLA VACCINES (1 of 2 - 01/01/1997 2-dose childhood series) MENINGOCOCCAL B VACCINES (1 of 01/01/2006 2 - Risk Bexsero 2-dose series) DTaP,Tdap,and Td Vaccines (1 - 01/01/2007 Tdap) HPV VACCINES (1 - Female 01/01/2007 2-dose series) INFLUENZA VACCINE (#1) 2018 CHLAMYDIA SCREENING 05/24/2020 05/24/2019, 03/09/2016 PAP SMEAR 05/24/2022 05/24/2019 PNEUMOCOCCAL 0-64 YEARS Aged Out No longer eligible based COMBINED SERIES on patient's age to complete this topic documented as of this encounter Procedures Procedure Name Priority Date/Time Associated Diagnosis Comments ASSIGNMENT OF BENEFITS Routine 06/07/2019 12:16 PM MENHADEN VESSEL PILOT documented in this encounter Results Not on filedocumented in this encounter Insurance Payer Benefit Plan / Subscriber ID Effective Dates Phone Address Type Group [facility]DR[facility] xxxxxxxxx 2019-Present Medicaid HEALTH PLAN - HEALTH MANAGED MEDICAID documented as of this encounter
--- OUTSIDE RECORDS SUMMARY | 2019-06-23 13:50 | XMS REPORT | Summary of Care ---
:1995 Author Organization [facility] - [address] [address] Care Team Providers Name Role Phone Pcp, Patient Does Not Have A Primary Care Provider Reason for Visit Reason Comments Orders Panorama/horizon Encounter Details Date Type Department Care Team Description 05/25/2019 Telephone [facility] Women's Virginie Dunbar MD Orders [facility]- [address] (Panorama/horizon) [address] [place] [address] [phone] [place], [place] [phone] [address] [phone] Allergies No Known Allergiesdocumented as of this encounter (statuses as of 05/30/2019) Medications Medication Sig Dispensed Refills Start Date End Date Status PNV62/FA/OM3/DHA/EPA/FIS Take by mouth. 0 Active H OIL ( GUMMY ORAL) documented as of this encounter (statuses as of 05/30/2019) Active Problems Problem Noted Date Chlamydia infection [...] as of this encounter (statuses as of 05/30/2019) Social History Tobacco Use Types Packs/Day Years [...] Obstetrics & Dunbar, MD Virginie Visit Gynecology [address] [place] [phone] Health Maintenance Due Date Last Done Comments VARICELLA VACCINES (1 of 2 - 01/01/1997 2-dose childhood series) MENINGOCOCCAL B VACCINES (1 of 01/01/2006 2 - Risk Bexsero 2-dose series) DTaP,Tdap,and Td Vaccines (1 - 01/01/2007 Tdap) HPV VACCINES (1 - Female 01/01/2007 2-dose series) PAP SMEAR 01/01/2017 INFLUENZA VACCINE (#1) 2018 CHLAMYDIA SCREENING 05/24/2020 05/24/2019, 03/09/2016 PNEUMOCOCCAL 0-64 YEARS Aged Out No longer eligible based COMBINED SERIES on patient's age to complete this topic documented as of this encounter Results Not on filedocumented in this encounter Insurance Payer Benefit Plan / Subscriber ID Effective Dates Phone Address Type Group [facility] [place] [facility] [place] CH[facility]ENS xxxxxxxxx 2019-Present Medicaid HEALTH PLAN - HEALTH MANAGED MEDICAID documented as of this encounter
--- OUTSIDE RECORDS SUMMARY | 2019-06-23 13:50 | XMS REPORT | Summary of Care ---
:1995 Author Organization [facility] - [address] [address] Care Team Providers Name Role Phone Pcp, Patient Does Not Have A Primary Care Provider Reason for Visit Reason Comments Orders Panorama/horizon Encounter Details Date Type Department Care Team Description 05/25/2019 Telephone [facility] Women's Virginie Dunbar MD Orders Healthcare- [address] (Panorama/horizon) [address] [place] [address] [phone] [place], [place] [phone] [address] [phone] Allergies No Known Allergiesdocumented as of this [...] Obstetrics & Dunbar, MD Virginie Visit Gynecology [address] [place] [phone] Health Maintenance Due Date Last Done [...] ID Effective Dates Phone Address Type Group [place] [facility] [place] [facility] xxxxxxxxx 2019-Present Medicaid HEALTH PLAN - HEALTH MANAGED MEDICAID documented as of this encounter
--- OUTSIDE RECORDS SUMMARY | 2019-06-23 13:50 | XMS REPORT | Summary of Care ---
:1995 Author Organization [facility] - [address] [address] Care Team Providers Name Role Phone Pcp, Patient Does Not Have A Primary Care Provider Reason for Visit Reason Comments Orders Encounter Details Date Type Department Care Team Description 06/07/2019 Telephone [facility] Women's Virginie Dunbar MD Orders [facility]- [address], [place] [address] [facility] [phone] [place] [phone] Allergies No Known Allergiesdocumented as of this [...] Treatment Date Type Specialty Care Team Description 06/17/2019 Office Visit OB Satellites Faculty, Flako Rmchp Mfm 06/25/2019 Photo Equipment Technician Visit Maternal Medicine 06/27/2019 Routine Obstetrics & Dunbar, MD Virginie Visit Gynecology [address] [place] [phone] Name Type Priority Associated Diagnoses Order Schedule CBC WITH DIFF LAB Routine Supervision of high risk Expected: 06/07/2019, in second trimester Expires: 06/06/2020 Health Maintenance Due Date Last Done Comments [...] Results Not on filedocumented in this encounter Visit Diagnoses Diagnosis Supervision of high risk in second trimester - Primary Unspecified high-risk documented in this encounter Insurance Payer Benefit Plan / Subscriber ID Effective Dates Phone Address Type Group [place] [facility] [place] CHILDRENS xxxxxxxxx 2019-Present Medicaid HEALTH PLAN - [facility] MANAGED MEDICAID documented as of this encounter
--- OUTSIDE RECORDS SUMMARY | 2019-06-23 13:50 | XMS REPORT | Summary of Care ---
:1995 Author Organization [facility] - [address] [address] Care Team Providers Name Role Phone Pcp, Patient Does Not Have A Primary Care Provider Reason for Visit Reason Comments Results Encounter Details Date Type Department Care Team Description 05/29/2019 Telephone [facility] Women's Virginie Dunbar MD Results Healthcare- [address] [phone] [facility] [phone] [place] [phone] Allergies No Known Allergiesdocumented as of this [...] Obstetrics & Dunbar, MD Virginie Visit Gynecology [address] [place] [phone] Health Maintenance Due Date Last Done [...] filedocumented in this encounter Visit Diagnoses Diagnosis Vaginitis affecting , antepartum - Primary documented in this encounter Insurance Payer Benefit Plan / Subscriber ID Effective Dates Phone Address Type Group [place] [facility] [place] [facility] xxxxxxxxx 2019-Present Medicaid HEALTH PLAN - HEALTH MANAGED MEDICAID documented as of this encounter
--- OUTSIDE RECORDS SUMMARY | 2019-06-23 13:50 | XMS REPORT | Summary of Care ---
:1995 Author Organization [facility] Address [address] [place] [address] Care Team Providers Name Role Phone Pcp, Patient Does Not Have A Primary Care Provider Reason for Visit Reason Comments LAB WORK Auth/Cert Status Reason Specialty Diagnoses / Procedures Referred By Contact Referred To Contact Phlebotomy Adc Pob Lab Draw Professional Office Building [address] [place] [address] , [address] [place] [phone] Encounter Details Date Type Department Care Team Description 06/07/2019 Leaf Stamper Visit [facility] Virginie Dunbar MD [address] [place] [phone] Missed menses; Professional Office Pob, Adc Lab Main examination or test, positive result; Building Phlebotomy Supervision of high risk , antepartum; Lab Chronic hypertension affecting ; Professional Office Morbid obesity; Building Supervision of high risk in second trimester; [address] [place] [address] 16 weeks gestation of , [address] [place] [phone] Allergies No Known Allergiesdocumented as of this [...] 06/17/2019 Office Visit OB Satellites Faculty, Flako [facility] 06/25/2019 Leaf Stamper Visit Maternal Medicine 06/27/2019 Routine Obstetrics & Dunbar, MD Virginie Visit Gynecology [address] [place] [phone] Health Maintenance Due Date Last Done Comments [...] filedocumented in this encounter Visit Diagnoses Diagnosis Missed menses Absence of menstruation examination or test, positive result Supervision of high risk , antepartum Chronic hypertension affecting Morbid obesity Supervision of high risk in second trimester Unspecified high-risk 16 weeks gestation of state, incidental documented in this encounter Insurance Payer Benefit Plan / Subscriber ID Effective Dates Phone Address Type Group [facility] xxxxxxxxx 2019-Present Medicaid HEALTH PLAN - HEALTH MANAGED MEDICAID documented as of this encounter
--- OUTSIDE RECORDS SUMMARY | 2019-06-23 13:50 | XMS REPORT | Summary of Care ---
:1995 Author Organization [facility] Address [address] [place] [address] Care Team Providers Name Role Phone Pcp, Patient Does Not Have A Primary Care Provider Reason for Referral (Routine) Status Reason Specialty Diagnoses / Referred By Referred To Procedures Contact Contact New Request Maternal Diagnoses Supervision of high risk , antepartum Chronic hypertension affecting Morbid obesity Virginie Dunbar, Medicine Procedures CONSULT/REFERRAL MATERNAL MEDICINE FACULTY/FELLOW Preferred location: Elidia GUERIN [address] [place] [phone] (Routine) Status Reason Specialty Diagnoses / Referred By Referred To Procedures Contact Contact New Request Maternal Diagnoses Supervision of high risk , antepartum Chronic hypertension affecting Morbid obesity Virginie Dunbar, Medicine Procedures CONSULT MATERNAL MEDICINE ULTRASOUND [address] [place] [phone] Reason for Visit Reason Comments New OB Visit Encounter Details Date Type Department Care Team Description 05/24/[address] [facility] Women's Virginie Dunbar, Supervision of high risk , antepartum (Primary Dx); Visit Healthcare- Missed menses; [address] examination or test, positive result; [address] [place] [address] Chronic hypertension affecting ; [address] [place], [place] [phone] Allergies No Known Allergiesdocumented as of this [...] Comments Blood Pressure 144/91 05/24/2019 1:54 PM DELIVERY REP Pulse 96 05/24/2019 1:53 PM DELIVERY REP Temperature 36.9 C (98.5 F) 05/24/2019 1:53 PM DELIVERY REP Respiratory Rate 18 05/24/2019 1:53 PM DELIVERY REP Oxygen Saturation - - Inhaled Oxygen Concentration - - Weight 146.1 kg (322 lb) 05/24/2019 1:54 PM DELIVERY REP Height 162.6 cm (5' 4") 05/24/2019 1:53 PM DELIVERY REP Body Mass Index 55.27 05/24/2019 1:53 PM DELIVERY REP documented in this encounter Progress Notes Virginie [...] Anes PTL Lv 3 Current 2 AB 2019 1 09/01/16 36w0d 6 lb (2.722 kg) [...] file Gets together: Not on file Attends episcopal service: Not on file Active member of [...] History Narrative No domestic abuse or violence Anabaptist preference:none No cats Social History Substance and Sexual Activity Sexual Activity Yes Partners: Male control/protection: None Genetic Screen Autism / Mental Retardation: No Supa Disease: No Congenital Heart Defect: No Cystic Fibrosis: No Down Syndrome: No Familial Dysautonomia: No Hemophilia or other Blood Disorders: No [place] Chorea: No Maternal Metabolic Disorder--specify (eg. Type [...] SPECIFIC GRAVITY, POC TEST, COMP. METABOLIC PANEL (46421), WORKUP, BLOOD BANK, GC & CHLAMYDIA AMPLIFIED [...] Plan: -Obtain 24 hour urine for protein/creatinine -MFM referral for co-management Morbid obesity Comment: BMI [...] Obstetrics & Virginie Dunbar MD Visit Gynecology [address] [place] [phone] Name Type Priority Associated Diagnoses Date/Time GC & CHLAMYDIA LAB Routine Missed menses 05/24/2019 4:25 PM AMPLIFIED ASSAY examination or DELIVERY REP test, positive result GALV ONLY - VAGINAL LAB Routine Supervision of high risk 05/24/2019 4:27 PM PATHOGENS BY DNA PROBE , antepartum DELIVERY REP Missed menses examination or test, positive result Chronic hypertension affecting Morbid obesity LAB ONLY PAP LAB Routine Supervision of high risk 05/24/2019 4:27 PM SMEAR-LIQUID BASED , antepartum DELIVERY REP Missed menses examination or test, positive result Chronic hypertension affecting Morbid obesity Name Type Priority Associated Diagnoses Order Schedule COMP. METABOLIC PANEL LAB Routine Missed menses Expected: 05/25/2019, (33976) examination or Expires: 08/22/2019 test, positive result [...] 05/24/2019 4:27 Supervision of high BASED-CP PM DELIVERY REP risk , antepartum Missed menses examination or test, positive result Chronic hypertension affecting Morbid obesity ADC / LCC - DRUG Routine 05/24/2019 4:25 Missed menses Results for this SCREEN TRIAGE PM DELIVERY REP examination procedure are in or test, positive [...] Results PAP Smear-Liquid Based (05/24/2019 4:27 PM DELIVERY REP) Specimen Swab - CERVIX Performing Organization Address City/State/Zipcode Phone Number [facility] CLIA: [id number], [address] [place] [address] [phone] [facility] ADC / LCC - DRUG SCREEN TRIAGE (05/24/2019 4:25 PM DELIVERY REP) BENZO U Negative Negative [facility] AMRIT U Negative Negative [facility] AMPHET Negative Negative [facility] THC Presumptive Positive Negative [facility] (A)Comment: HOSPITAL Confirmation of LABORATORY Presumptive Positive THC result requires physician order. METHADONE Negative Negative [facility] Meth U Negative Negative [facility] OPIATES Negative Negative [facility] Cocaine Metabolite Negative Negative [facility] PROPOXY Negative Negative [facility] Tric U Negative Negative [facility] PCP Negative Negative [facility] OXYCOD Negative Negative [facility] Specimen Urine - URINE, CLEAN CATCH Narrative Performed At Urine Drug Cutoff Ranges [facility] Benzodiazepines: 150 ng/mL Barbiturates: 200 [...] employment testing, legal testing). Performing Organization Address City/State/Zipcode Phone Number [facility] CLIA: [id number], [address] [place] [address] POCT TEST (05/24/2019) POCT [...] ID Effective Dates Phone Address Type Group [facility] xxxxxxxxx 2019-Present Medicaid HEALTH PLAN - [facility] MANAGED MEDICAID documented as of this encounter
--- OUTSIDE RECORDS SUMMARY | 2019-06-23 13:51 | XMS REPORT | Summary of Care ---
:1996 Author Organization 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 [facility] Virginie Dunbar MD [address] [place] [phone] Missed menses; Professional Office Pob, Adc Lab Main examination or test, positive result; Building Phlebotomy Supervision of high risk , antepartum; Lab Chronic hypertension affecting ; Professional Office Morbid obesity; Building Supervision of high risk in second trimester; [address] [place] [address] 16 weeks gestation of , [address] [place] [phone] Allergies No Known Allergiesdocumented as [...] 06/17/2019 Office Visit OB Satellites Faculty, Flako Cottrellchp m 06/25/2019 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 Visit Maternal Medicine 06/27/2019 Routine Obstetrics & Dunbar, MD Virginie Visit Gynecology [address] [place] [phone] Name Type Priority Associated Diagnoses Date/Time HIV 1/2 AG-AB WITH REFLEX LAB Routine Missed menses 06/07/2019 1:37 PM examination or ELECTROTYPE MOLDER test, positive result ADC OR ALBINO ONLY - RPR LAB Routine Missed menses 06/07/2019 1:37 PM examination or ELECTROTYPE MOLDER test, positive result HCV ANTIBODY LAB Routine Missed menses 06/07/2019 1:37 PM examination or ELECTROTYPE MOLDER test, positive result VZV ANTIBODY SCREEN LAB Routine Missed menses 06/07/2019 1:37 PM examination or ELECTROTYPE MOLDER test, positive result URINE CULTURE LAB Routine Missed menses 06/07/2019 1:37 PM examination or ELECTROTYPE MOLDER test, positive result RUBELLA SCREEN IGG LAB Routine Missed menses 06/07/2019 1:37 PM examination or ELECTROTYPE MOLDER test, positive result ALPHA LAB Routine Supervision of high risk 06/07/2019 1:37 PM FETOPROTEIN-MATERNAL SER in second ELECTROTYPE MOLDER trimester 16 weeks gestation of CBC WITH DIFF LAB Routine Supervision of high risk 06/07/2019 4:22 PM in second ELECTROTYPE MOLDER trimester CBC WITH DIFFERENTIAL LAB Routine Supervision of high risk 06/07/2019 4: 22 PM in second ELECTROTYPE MOLDER trimester Health Maintenance Due Date Last Done Comments [...] Procedure Name Priority Date/Time Associated Diagnosis Comments HB ABO GROUPING Routine 06/07/2019 1:37 Missed menses Results for this PM ELECTROTYPE MOLDER examination procedure are in or test, positive the results result section. COMP. METABOLIC Routine 06/07/2019 1:37 Missed menses Results for this PANEL (64136) PM ELECTROTYPE MOLDER examination procedure are in or test, positive the results result section. GLUCOSE 1 HOUR POST Routine 06/07/2019 1:37 Supervision of high Results for this PRANDIAL PM ELECTROTYPE MOLDER risk , procedure are in antepartum the results Missed menses section. examination or test, positive result Chronic hypertension affecting Morbid obesity documented in this encounter Results GLUCOSE 1 HOUR POST PRANDIAL (06/07/2019 1:37 PM ELECTROTYPE MOLDER) GLUC 1 HR 148 120 - 170 mg/dL [facility] Specimen Blood Performing Organization Address City/State/Zipcode Phone Number [facility] CLIA: [id number], [address] [place] [address] COMP. METABOLIC PANEL (96790) (06/07/2019 1:37 PM ELECTROTYPE MOLDER) NA 135 135 - 145 [facility] mmol/L HOSPITAL LABORATORY K 4.1 3.5 - 5.0 [facility] mmol/L HOSPITAL LABORATORY CL 103 98 - 108 mmol/L [facility] CO2 TOTAL 23 23 - 31 mmol/L [facility] AGAP 9 2 - 16 [facility] BUN 5 (L) 7 - 23 mg/dL [facility] GLUCOSE 152 (H) 70 - 110 mg/dL [facility] CREATININE 0.49 (L) 0.50 - 1.04 [facility] mg/dL [facility] TOTAL BILI 0.2 0.1 - 1.1 mg/dL [facility] CALCIUM 9.1 8.6 - 10.6 [facility] mg/dL [facility] T PROTEIN 6.9 6.3 - 8.2 g/dL [facility] ALBUMIN 3.9 3.5 - 5.0 g/dL [facility] ALK PHOS 56 34 - 122 U/L [facility] ALTv 13 5 - 35 U/L [facility] AST(SGOT) 16 13 - 40 U/L [facility] eGFR Calculation 156.5 mL/min/1.73m2 [facility] [place]) eGFR Calculation 189.7 mL/min/1.73m2 [facility] () [facility] Specimen Blood Narrative Performed At Association of Glomerular Filtration Rate (GFR) [facility] and Staging of Kidney Disease* + + +- + | GFR (mL/min/1.73 m2) | With Kidney Damage | Without Kidney Damage + + +- + | >90 | Stage one | Normal + + +- + | 60-89 | Stage two | Decreased GFR + + +- + | 30-59 | Stage three | Stage three + + +- + | 15-29 | Stage four | Stage four + + +- + | <15 (or dialysis) | Stage five | Stage five + + +- + *Each stage assumes the associated GFR level has been in effect for at least three months. Stages 1 to 5, with or without kidney disease, indicate chronic kidney disease. Notes: Determination of stages one and two (with eGFR >59mL/min/1.73 m2) requires estimation of kidney damage for at least three months as defined by structural or functional abnormalities of the kidney, manifested by either: Pathological abnormalities or Markers of kidney damage (including abnormalities in the composition of the blood or urine or abnormalities in imaging tests). Performing Organization Address City/State/Zipcode Phone Number [facility] CLIA: [id number], [address] [place] [address] [facility] [address] WORKUP, BLOOD BANK (06/07/2019 1:37 PM ELECTROTYPE MOLDER) ABO & RH O Positive LAB Comment: Performed at [facility] Laboratory Services - [facility] Blood Bank [address] [place] [phone] Toll Free: [phone] CLIA No. [id number] IAT Negative LAB Comment: Performed at [facility] Laboratory [facility] Blood Bank [address] [place] [phone] Toll Free: [phone] CLIA No. [id number] Specimen Blood - [facility] Performing Organization Address City/[facility]/Zipcode Phone Number [facility] documented in this encounter Visit Diagnoses Diagnosis Missed menses Absence of menstruation examination or test, positive result Supervision of high risk , antepartum Chronic hypertension affecting Morbid obesity Supervision of high risk in second trimester Unspecified high-risk 16 weeks gestation of state, incidental documented in this encounter Insurance Payer Benefit Plan / Subscriber ID Effective Dates Phone Address Type Group [facility] x[facility] 2019-Present Medicaid HEALTH PLAN - HEALTH MANAGED MEDICAID documented as of this encounter"
--- OUTSIDE RECORDS SUMMARY | 2019-06-23 13:51 | XMS REPORT | Summary of Care ---
:1996 Author Organization [facility] Address [address] [place] [address] Care Team Providers Name Role Phone Pcp, Patient Does Not Have A Primary Care Provider Reason for Visit Reason Comments Back Pain 2 days Abdominal Pain 2 days Encounter Details Date Type Department Care Team Description 06/10/2019 Routine [facility] Women's Vanaphan, Susy, Abdominal pain, generalized (Primary Dx); Visit Healthcare- PA-C Acute low back pain without sciatica, unspecified back pain laterality; [address] 17 weeks gestation of [address], [address] [place] [phone] Allergies No Known Allergiesdocumented as of this encounter (statuses as of 06/10/2019) Medications Medication Sig Dispensed Refills Start Date End Date Status PNV62/FA/OM3/DHA/EPA/FIS Take by mouth. 0 Active H OIL ( GUMMY ORAL) metroNIDAZOLE (FLAGYL) Take 1 tablet by 14 tablet 0 05/29/2019 Active 500 mg mouth 2 (two) tabletIndications: times daily with Vaginitis affecting meals. , antepartum documented as of this encounter (statuses as of 06/10/2019) Active Problems Problem Noted Date Chlamydia infection [...] as of this encounter (statuses as of 06/10/2019) Social History Tobacco Use Types Packs/Day Years [...] Sign Reading Time Taken Comments Blood Pressure 150/95 06/10/2019 1:16 PM CDT Pulse 107 06/10/2019 1:15 PM CDT Temperature 36.9 C (98.4 F) 06/10/2019 1:15 PM CDT Respiratory Rate 18 06/10/2019 1:15 PM CDT Oxygen Saturation - - Inhaled Oxygen Concentration - - Weight 148 kg (326 lb 3.2 oz) 06/10/2019 1:15 PM CDT Height 162.6 cm (5' 4") 06/10/2019 1:15 PM CDT Body Mass Index 55.99 06/10/2019 1:15 PM CDT documented in this encounter Progress Notes Susy Avila PA-C - 06/10/2019 1:00 PM CDT Chief complaint: Chief Complaint Patient presents with Back Pain 2 days Abdominal Pain 2 days HPI Lacy Reyna is a 24 year old female @ 17w2d coming in for pelvic pain and back pain.Patient denies any discharge, dysuria, hematuria, abnormal bleeding. Histories OB History Para Term AB Living [...] file Gets together: Not on file Attends bahai service: Not on file Active member of [...] History Narrative No domestic abuse or violence Protestant preference:none No cats Social History Substance and Sexual Activity Sexual Activity Yes Partners: Male control/protection: None Labs none Radiology none Allergies Lacy has No Known Allergies. Medications Lacy has a current medication list which includes the following prescription(s): metronidazole and vits62/fa/om3/dha/epa. Review of Systems Constitutional: Negative for appetite change, fatigue and fever. HENT: Negative for rhinorrhea and sore throat. Eyes: Negative for pain and itching. Respiratory: Negative for cough, chest tightness and shortness of breath. Breasts: Negative for discharge, mass and pain. Cardiovascular: Negative for chest pain, palpitations and leg swelling. Gastrointestinal: Negative for abdominal pain, constipation, diarrhea and nausea. Genitourinary: Positive for pelvic pain. Negative for bladder incontinence, dysuria, vaginal discharge, difficulty urinating and vaginal pain. Musculoskeletal: Positive for back pain. Negative for gait problem and myalgias. Skin: Negative for rash. Neurological: Negative for dizziness and headaches. Psychiatric/Behavioral: Negative for suicidal ideas. The patient is not nervous/ anxious. Endocrine: Negative for hair loss. BP (!) 150/95 | Pulse 107 | Temp 36.9 C (98.4 F) (Oral) | Resp 18 | Ht 5 ' 4" (1.626 m) | Wt326 lb 3.2 oz (148 kg) | LMP 02/09/2019 | BMI 55.99 kg/m Pregravid BMI: 54.9 Physical Exam Vitals reviewed. Constitutional: She is oriented to person, place, and time. Her body habitus is obese. Neck: No mass. No thyromegaly palpated. No neck adenopathy. Cardiovascular: Regular rate and rhythm. Pulmonary/Chest: Normal inspiratory effort. Abdominal: Abdomen is soft. No tenderness present. No hernia palpated or inspected. Neuro/Psychiatric: She has a normal mood and affect. She is oriented to person, place, and time. Skin: Skin normal. Lymphadenopathy: No neck adenopathy present. No axillary adenopathy present. No inguinal adenopathy present. Assessment/Plan SEE OB SUMMARY Return to clinic in 4 weeks. Discussed treatment options. Reviewed patient instructions and provided printed copy. Activity restrictions: As tolerated This visit did not involve counseling and coordination that comprised more than 50% of the visit time. Susy Avila PA-C 06/10/2019 4:50 PM documented in this encounter Plan of Treatment Date Type Specialty Care Team Description 06/17/2019 Office Visit OB Satellites Faculty, Flako Major 06/25/2019 [facility] Visit Maternal Medicine 06/27/2019 Routine Obstetrics & Dunbar, MD Virginie Visit Gynecology [address] [place] [phone] Name Type Priority Associated Diagnoses Order Schedule GALV ONLY - VAGINAL LAB Routine Abdominal pain, Ordered: 06/10/2019 PATHOGENS BY DNA PROBE generalized Acute low back pain without sciatica, unspecified back pain laterality Health Maintenance Due Date Last Done Comments MENINGOCOCCAL B VACCINES (1 of 01/01/2006 2 [...] Procedure Name Priority Date/Time Associated Diagnosis Comments POCT URINALYSIS W/O Routine 06/10/2019 17 weeks gestation of Results for this SPECIFIC GRAVITY procedure are in the results section. POCT URINALYSIS W/O Routine 06/10/2019 Abdominal pain, Results for this SPECIFIC GRAVITY generalized procedure are in the Acute low back pain results section. without sciatica, unspecified back pain laterality documented in this encounter Results POCT URINALYSIS W/O SPECIFIC GRAVITY (06/10/2019) POCT PH U 7 5 - 8 mg/dl POCT U LEUK EST negative Negative - Negative POCT U NIT negative Negative - Negative POCT U PROT trace Negative - Negative POCT U GLU normal Negative - Negative POCT U KETONE negative Negative - Negative POCT U BLD negative Negative - Negative Specimen Urine - URINE, CLEAN CATCH POCT URINALYSIS W/O SPECIFIC GRAVITY (06/10/2019) POCT PH U 7 5 - 8 mg/dl POCT U LEUK EST neg Negative - Negative POCT U NIT neg Negative - Negative POCT U PROT trace Negative - Negative POCT U GLU neg Negative - Negative POCT U KETONE neg Negative - Negative POCT U BLD neg Negative - Negative Specimen Urine - URINE, CLEAN CATCH documented in this encounter Visit Diagnoses Diagnosis Abdominal pain, generalized - Primary Acute low back pain without sciatica, unspecified back pain laterality 17 weeks gestation of state, incidental documented in this encounter Insurance Payer Benefit Plan / Subscriber ID Effective Dates Phone Address Type Group [facility] xxxxxxxxx 2019-Present Medicaid HEALTH PLAN - HEALTH MANAGED MEDICAID documented as of this encounter
--- OUTSIDE RECORDS SUMMARY | 2019-06-23 13:51 | XMS REPORT | Summary of Care ---
:1995 Author Organization [address] [address] Care Team Providers Name Role Phone Pcp, Patient Does Not Have A Primary Care Provider Reason for Visit Reason Comments ROUTINE VISIT Auth/Cert Status Reason Specialty Diagnoses / Procedures Referred By Contact Referred To Contact Phlebotomy Adc Pob Lab Draw Professional Office Building [address] [place] [address] , [address] [place] [address] Encounter Details Date Type Department Care Team Description 06/07/2019 Routine [facility] Women's Virginie Dunbar, Supervision of high risk in second trimester (Primary Dx); Visit Healthcare- 16 weeks gestation of ; [address] Morbid obesity; [address] [place] [address] Chronic hypertension affecting ; [address] [place], [place] Previous delivery affecting , [place] [phone] Allergies No Known Allergiesdocumented as of this encounter (statuses as of 06/08/2019) Medications Medication Sig Dispensed Refills Start Date End Date Status PNV62/FA/OM3/DHA/EPA/FIS Take by mouth. 0 Active H OIL ( GUMMY ORAL) metroNIDAZOLE (FLAGYL) Take 1 tablet by 14 tablet 0 05/29/2019 Active 500 mg mouth 2 (two) tabletIndications: times daily with Vaginitis affecting meals. , antepartum documented as of this encounter (statuses as of 06/08/2019) Active Problems Problem Noted Date Chlamydia infection [...] as of this encounter (statuses as of 06/08/2019) Social History Tobacco Use Types Packs/Day Years [...] Sign Reading Time Taken Comments Blood Pressure 141/94 06/07/2019 11:15 AM COMMUNITY SERVICE ORGANIZATION DIRECTOR Pulse 93 06/07/2019 11:15 AM COMMUNITY SERVICE ORGANIZATION DIRECTOR Temperature 36.9 C (98.4 F) 06/07/2019 11:10 AM COMMUNITY SERVICE ORGANIZATION DIRECTOR Respiratory Rate 18 06/07/2019 11:10 AM COMMUNITY SERVICE ORGANIZATION DIRECTOR Oxygen Saturation - - Inhaled Oxygen Concentration - - Weight 148.3 kg (327 lb) 06/07/2019 11:10 AM COMMUNITY SERVICE ORGANIZATION DIRECTOR Height 162.6 cm (5' 4") 06/07/2019 11:10 AM COMMUNITY SERVICE ORGANIZATION DIRECTOR Body Mass Index 56.13 06/07/2019 11:10 AM COMMUNITY SERVICE ORGANIZATION DIRECTOR documented in this encounter Patient Instructions Patient InstructionsVan Sanon - 06/07/2019 10:45 AM CST Video [employer] Common Changes During Certain changes and discomforts occur during and are perfectly normal. Some of these changes include backache, frequent urination, and constipation. This video describes typical changes, how to safely relieve your discomfort, and what circumstances require a visit to your doctor. To watch the video: Scan the QR code Using your mobile device, scan the following code: OR Go to the website: www.[employer] Enter the prescription code: KWX [employer]. [address] [place] [address], [place] [address]. All rights reserved. This information is not intended as a substitute for professional medical care. Always follow your healthcare professional's instructions. Comfort Tips During Talk with yourhealthcare provider before using pain-relieving medicine at any time during your . First trimester tips Nausea Get up slowly. Eat a few unsalted crackers before you get out of bed. Avoid smells that bother you. Eat smallbland low fat, light high-protein meals at frequent intervals. Sip on water, weaktea, or clear soft drinks, like monica brigido.Eat ice chips. Fatigue Take catnaps when you can. Get regular exercise. Accept help from others. Practice good sleep habits, like going to bed and getting up at the same time each day. Use your bed only for sleep and sex. Mood swings Talk about your feelings with others, including other mothers. Limit sugar, chocolate, and caffeine. Eat a healthy diet. Dont skip meals. Get regular exercise. Headaches Get fresh air and exercise. Relax and get enough rest. Check with your healthcare provider before taking any pain medicines. Second trimester tips Here are some suggestions to help you cope: To limit ankle swelling, sit with your feet raised or wear support hose. If you have pain in your groin and stomach(round ligament pain), avoid sudden twisting movements. For leg cramps, flexing your foot often brings immediate relief. You also may try massaging your calf in long, downward strokes, or stretching your legs before going to bed. Get enough exercise and wear shoes with flexible soles. Third trimester tips Reducing heartburn Eat small, light meals throughout the day rather than 3 large ones. Sleep with your upper body raised 6 inches. Dont lie down until 2 hours after you eat. Don't eat greasy, fried, or spicy foods. Avoid citrus fruits and juices. Treating constipation Eat foods high in fiber (whole-grain foods, fresh fruit and vegetables). Drink plenty of water. Get regular exercise. Discuss other medicines (like docusate and psyllium) with your healthcare provider. Taking care of your breasts Avoid using harsh soaps or alcohol, which can cause excessive dryness. Wear nursing bras. They provide more support than regular bras and can be used after ifyou breastfeed. Getting a good nights sleep Take a warm shower before bed. Sleep on a firm mattress. Lie on your side with 1 leg crossed over the other. Use pillows to support arms, legs, and belly. Armen last reviewed this educational content on 01/01/201719996381-1641 The [employer]. [address] [place] [address], [place] [address]. All rights reserved. This information is not intended as a substitute for professional medical care. Always follow your healthcare professional's instructions. Adapting to : Second Trimester Keep up the healthy habits you started in your first trimester. You might be a little more tired than normal. So plan your day wisely. Look at the tips below and choose the ones that suit your lifestyle. If you have any questions, check with your healthcare provider. If you work If you can, adjust your work with your employer to fit your needs. Try these tips: If you stand for long periods, find ways to do some tasks while sitting. Also , try to stand with 1 foot resting on a low stool or ledge. Shift your weight from foot to foot often. Wear low-heeled shoes. If you sit, keep your knees level with your hips. Rest your feet on a firm surface. Sit tall withsupport for your low back. If you work long hours, ask about adjusting your schedule. Try taking shorter breaks more often. When you travel The second trimester may be the best time for any travel. Talk to your healthcare provider about anyspecial plans you may need to make. Always: Wear a seat belt. Fasten the lap part under your belly. Wear the shoulder part also. Take breaks often during long trips by car or plane. Move around to stretch your legs. Drink plenty of fluids on flights. The air in plane cabins is very dry. Avoid hot climates or high altitudes if you are not used to them. Avoid places where the food and water might make you sick. Make sure you are up-to-date on all immunizations, including the flu vaccine. This is especially important when traveling overseas. Taking time to relax Find time to rest and relax at work or at home: Take short time-outs daily. Do relaxation exercises. Breathe deeply during stressful times. Try not to take on too much. Plan tasks for times when you have the most energy. Take naps when you can. Or just sit and relax. After week 16, avoid lying on your back for more than a few minutes. Instead , lie on your side. Switch sides often. Continuing as lovers Unless your healthcare provider tells you otherwise, there is no reason to stop having sex now. Blood supply increases to the pelvic area in the second trimester. Because of this, sex might be more enjoyable. Try different positions and see whats best. Also, talk to your partner about any changes in desire. Spotting may happen after sex. Be sure to let your healthcare provider know if there is heavy bleeding. Keeping your environment safe You can still clean house and use scented products. Just take some simple precautions: Wear gloves when using cleaning fluids. Open windows to let in fresh air. Use a fan if you paint. Avoid secondhand smoke. Dont breathe fumes from nail somali, hair spray, cleansers, or other chemicals. [employer] last reviewed this educational content on 04/03/201719993704-3698 The [employer]. [address] [place] [address]. All rights reserved. This information is not intended as a substitute for professional medical care. Always follow your healthcare professional's instructions. : Your Second Trimester Changes Each day, you and your baby are changing and growing together. Heres a quick look at whats happening to both of you. How you are changing Even when you dont notice it, your body is adapting to meet the needs of your growing baby. The changes in your body might also affect your moods. Your body Your uterus expands as baby grows. As the weeks go by, you will feel more pressure on your bladder, stomach, and other organs. You may notice some skin color changes on your forehead, nose, or cheeks. Freckles may darken, and moles may grow. You may notice a darker line on your abdomen between your belly button and pubic bone in the midline. Your moods The second trimester is often easier than the first. Still, be prepared for mood swings. These are due to the increase in hormones (chemicals that affect the way organs work) produced by your body. These mood swings are a normal part of . How your baby is growing Month 4 Babys heartbeat may be heard with a Doppler (hand-held ultrasound device) by 9 to 10 weeks.Eyebrows, eyelashes, and fingernails begin to form. Month 5 You may feel your baby move. After a growth spurt, your baby nears 10 inches. Month 6 Babys fingerprints have formed. Your baby weighs about 1to 2 pounds and is about 12 inches long. [employer] last reviewed this educational content on 04/03/201719992178-7413 The [employer]. [address] [place] [address], [place] [address]. All rights reserved. This information is not intended as a substitute for professional medical care. Always follow your healthcare professional's instructions. Handwashing: Tips for Patients, Family, and Friends Germs are everywhere around us. Normally, we live with germs without getting sick. In certain cases,harmful germs cause us to get sick with an infection. Or we can spread harmful germs to others and cause them to get sick. Keeping your hands clean is the best way to prevent getting or spreading germsthat cause infection. Wash your hands with soap and water or use an alcohol-based hand chicken cleaner. When to clean your hands: For patients In the hospital or in your home, you can come in contact with many harmful germs. To help prevent infection, wash your hands often, especially: After using the bathroom Before and after eating After coughing or sneezing After using a tissue After touching or changing a dressing or bandage After touching any object or surface that may be contaminated After touching an animal during a pet therapy session (hospital) After touching an animal, cleaning up after a pet, orpreparing food for pets (home) If you dont have access to soap and water, use an alcohol-based hand gel containing at least 60% alcohol. These products kill most germs and are easy to use. But if your hands are visibly dirty, usesoap and water (not alcohol-based hand gel). When to clean your hands: For family and friends When visiting or caring for a loved one, washing your hands or using an alcohol- based hand chicken cleaner can help stop germs from spreading. Wash your hands: Before entering and after leaving the patients room As soon as you remove gloves or other protective clothing After changing a dressing or bandage After any contact with blood or other body fluids After touching or changing the patients bed linen or towels After touching an animal during a pet therapy session (hospital) After touching an animal, cleaning up after a pet, orpreparing food for pets (home) Many hospitals have sinks or gel dispensers right outside patient rooms. If not , carry a bottle of alcohol-based hand gel with you. Use it every time you visit. If your hands are visibly dirty, use soap and water (not alcohol-based hand gel). Tips for good handwashing Here are some suggestions to follow: Use either cold or warm water and plenty of soap. Work up a good lather. Clean the whole hand, including under your nails, between your fingers, and up the wrists. Wash for at least 15 to 30 seconds. Dont just wipe. Scrub well. Sing the [employer] song to reach the 30- second goal Rinse. Let the water run down your fingers, not up your wrists. Dry your hands well. Use a paper towel to turn off the faucet and open the door. Time matters The longer you wash your hands, the more germs youll remove. Most people wash their hands for 6 to 7 seconds. But at least15 secondsare needed to remove germs. Singing [employer] or the [employer] Song are examples ofhow long 15 seconds would be.To protect yourself and others from infection, washing for 30 seconds is best. How to use an alcohol-based hand chicken cleaner Alcohol-based hand bus info consultant may kill more germs than soap and water. Use them when your hands arent visibly dirty. For best results, follow these steps: Choose a gel or spray that contains at least 60% alcohol. Products with less alcohol may not killgerms. Spread about a tablespoon of chicken cleaner in the palm of one hand. Rub your hands together briskly, cleaning the backs of your hands, the palms , between your fingers, and up the wrists. Rub until the chicken cleaner is gone, and your hands are completely dry. Antibacterial soaps: Come in liquid or bar form and are used with water Are no better at removing germs than plain soap Alcohol-based hand bus info consultant: Come in gels or sprays that dont need water Work as well or better than washing with soap and water Armen last reviewed this educational content on 09/01/201819995378-1595 The [employer]. [address] [place] [address]. All rights reserved. This information is not intended as a substitute for professional medical care. Always follow your healthcare professional's instructions. [id number]: Washing Your Hands Armen kahn reviewed this educational content on 01/01/201719991414-7614 The [employer]. [address] [place] [address]. All rights reserved. This information is not intended as a substitute for professional medical care. Always follow your healthcare professional's instructions. Using a Hand Automation Test Developer [id number] Armen khan reviewed this educational content on 08/28/201419993880-8783 The [employer]. [address] [place] [address]. All rights reserved. This information is not intended as a substitute for professional medical care. Always follow your healthcare professional's instructions. People UNITY SERVICE ORGANIZATION DIRECTOR documented in this encounter Progress Notes Virginie Dunbar MD - 06/07/2019 10:45 AM CST Chief complaint: Chief Complaint Patient presents with ROUTINE VISIT HPI Lacy Ryena is a 24 year old female with a 17w0d IUP presents for her routine prenatalvisit. She denies pain, contractions, LOF, or VB. The patient has no [...] file Gets together: Not on file Attends jain service: Not on file Active member of [...] History Narrative No domestic abuse or violence Mandaeism preference:none No cats Social History Substance and Sexual Activity Sexual Activity Yes Partners: Male control/protection: None Labs I have reviewed the patient's labs. Radiology No new radiology. Allergies Lacy has No Known Allergies. Medications Lacy has a current medication list which includes the following prescription(s): metronidazole and vits62/fa/om3/dha/epa. Review of Systems Constitutional: Negative. HENT: Negative. Eyes: Negative. Respiratory: Negative. Breasts: Negative. Cardiovascular: Negative. Gastrointestinal: Negative. Genitourinary: Negative. Musculoskeletal: Negative. Skin: Negative. Neurological: Negative. Psychiatric/Behavioral: Negative. Endocrine: Endocrine negative BP (!) 141/94 (BP Location: Right arm, Patient Position: Sitting) | Pulse 93 | Temp 36.9 C (98.4F) (Oral) | Resp 18 | Ht 5' 4" (1.626 m) | Wt 327 lb ( 148.3 kg) | LMP 02/09/2019 | BMI 56.13 kg/m Pregravid BMI: 54.9 Physical Exam Vitals reviewed. Constitutional: She is oriented to person, place, and time. She appears well- developed and well-nourished. Pulmonary/Chest: Normal inspiratory effort. Abdominal: Abdomen is soft. No mass palpated. No tenderness present. There is no rigidity and no guarding. Neuro/Psychiatric: She has a normal mood and affect. She is oriented to person, place, and time. Skin: Skin normal. Uterus: Soft, gravid, non-tender Assessment/Plan Lacy Reyna is a 24 year old female with a 17w0d IUP MSAFP today Panorama/[facility] today as per patient request OB ultrasound scheduled 06/25/19, targeted, due to family history as below. Patient is aware and instructed to assure that she kept her appointment. Patient has not obtained remainder of her labs including her 1 hour GTT. Stressed need for compliance. Morbid obesity Comment: BMI 56.13. 5 lb weight again since last visit. Dietary counseling - avoid sweets, added sugars, sweetened beverages and processed carbs. Concentrate on lean proteins, vegetables and fruits, and healthy fats. Drink plenty of water. Try to get 30 minutes of moderate exercise/walking on most days. Plan: Monitor every visit Previous delivery Plan: We will discuss delivery modality on return to clinic Obtain previous records Father of baby with a history of a heart defect Comment: Various other family members also with history of heart defect. Plan: We will proceed with genetic counseling and MFM assistance with evaluation. Chronic hypertension affecting Plan: MFM consult may previously to assist with management. Patient is aware of her appointment on 06/17/19. 24 hour urine for protein/creatinine. Patient has not yet collected. We did discuss need for compliance. Return to clinic in 3 weeks. This visit did not involve counseling and coordination that comprised more than 50% of the visit time. Virginie Dunbar MD documented in this encounter Plan of Treatment Date Type Specialty Care Team Description 06/17/2019 Office Visit OB Satellites Faculty, Flako Vang [facility] 06/25/2019 Braille Teacher Visit Maternal Medicine 06/27/2019 Routine Obstetrics & Virginie Dunbar MD Visit Gynecology [address] [place] [phone] Name Type Priority Associated Diagnoses Date/Time ALPHA LAB Routine Supervision of high risk 06/07/2019 1:37 PM COMMUNITY SERVICE ORGANIZATION DIRECTOR FETOPROTEIN-MATERNAL in second SER trimester 16 weeks gestation of Name Type Priority Associated Diagnoses Order Schedule ALPHA LAB Routine Supervision of high risk Expected: 06/07/2019, FETOPROTEIN-MATERNAL in second Expires: 07/07/2019 SER trimester 16 weeks gestation of Health Maintenance Due Date Last Done Comments [...] Associated Diagnosis Comments POCT URINALYSIS W/O Routine 06/07/2019 Supervision of high Results for this SPECIFIC GRAVITY risk in procedure are in the second trimester results section. documented in this encounter Results POCT URINALYSIS W/O SPECIFIC GRAVITY (06/07/2019) POCT PH U n/a 5 - 8 [...] in second trimester - Primary Unspecified high-risk 16 weeks gestation of state, incidental Morbid obesity Chronic hypertension affecting Previous delivery affecting , antepartum Previous delivery, antepartum condition or complication documented in this encounter Insurance Payer Benefit Plan / Subscriber ID Effective Dates Phone Address Type Group [facility] xxxxxxxxx 2019-Present Medicaid HEALTH PLAN - HEALTH MANAGED MEDICAID documented as of this encounter
--- OUTSIDE RECORDS SUMMARY | 2019-06-23 13:51 | XMS REPORT | Summary of Care ---
:1995 Author Organization [address] [address] Care Team Providers Name Role Phone Pcp, Patient Does Not Have A Primary Care Provider Reason for Visit Reason Comments Assessment Triage Encounter Details Date Type Department Care Team Description 06/10/2019 Telephone [facility] Women[facility] Virginie Dunbar MD Assessment (Triage) Healthcare- [phone] [place], [place] [phone] [address] [phone] Allergies No Known Allergiesdocumented as of this [...] Treatment Date Type Specialty Care Team Description 06/10/2019 Routine Obstetrics & Susy Avila, Visit Gynecology [address] [phone] 06/17/2019 Office Visit OB Satellites Faculty, Flako Vang phuong 06/25/2019 Supervisor Electronics Assembly Visit Maternal Medicine 06/27/2019 Routine Obstetrics & Dunbar, MD Virginie Visit Gynecology [address] [place] [phone] Health Maintenance Due Date Last Done Comments [...]
--- OUTSIDE RECORDS SUMMARY | 2019-06-23 13:51 | XMS REPORT | Summary of Care ---
:1995 [address] [address] Care Team Providers Name Role Phone Pcp, Patient Does Not Have A Primary Care Provider Reason for Visit Reason Comments ROUTINE VISIT Auth/Cert Status Reason Specialty Diagnoses / Procedures Referred By Contact Referred To Contact Phlebotomy Adc Pob Lab Draw Professional Office Building [address] [place] [address] , [address] [place] [address] Encounter Details Date Type Department Care Team Description 06/07/2019 Routine [facility] Women's Virginie Dunbar, Supervision of high risk in second trimester (Primary Dx); Visit Healthcare- 16 weeks gestation of ; [address] Morbid obesity; [address] [place] [address] Chronic hypertension affecting ; [address] [place], [place] Previous delivery affecting , [place] [phone] Allergies No Known Allergiesdocumented [...] Comments Blood Pressure 141/94 06/07/2019 11:15 AM BELL RINGER Pulse 93 06/07/2019 11:15 AM BELL RINGER Temperature 36.9 C (98.4 F) 06/07/2019 11:10 AM BELL RINGER Respiratory Rate 18 06/07/2019 11:10 AM BELL RINGER Oxygen Saturation - - Inhaled Oxygen Concentration - - Weight 148.3 kg (327 lb) 06/07/2019 11:10 AM BELL RINGER Height 162.6 cm (5' 4") 06/07/2019 11:10 AM BELL RINGER Body Mass Index 56.13 06/07/2019 11:10 AM BELL RINGER documented in this encounter Patient Instructions Patient [...] following code: OR Go to the website: www.[employer] Enter the prescription code: KWX [employer]. [address] [place] [address], [place] [address]. All rights reserved. This information is not [...] Armen last reviewed this educational content on 01/01/201719997510-9342 [employer]. [address] [place] [address], [place] [address]. All rights reserved. This information is not [...] secondhand smoke. Dont breathe fumes from nail turks and caicos islander, hair spray, cleansers, or other chemicals. Crunch[employer] last reviewed this educational content on 04/03/201719997447-8035 [employer]. [address] [place] [address]. All rights reserved. This information is not [...] pounds and is about 12 inches long. [employer] last reviewed this educational content on 04/03/201719997744-6217 [employer]. [address] [place] [address], [place] [address]. All rights reserved. This information is not [...] and water or use an alcohol-based hand seed cleaner operator. When to clean your hands: For patients [...] hands or using an alcohol- based hand seed cleaner operator can help stop germs from spreading. Wash [...] Dont just wipe. Scrub well. Sing the [employer] song to reach the 30- second [...] least15 secondsare needed to remove germs. Singing [employer] or the [employer] Song are examples ofhow long 15 seconds would be.To protect yourself and others from infection, washing for 30 seconds is best. How to use an alcohol-based hand seed cleaner operator Alcohol-based hand transmitter engineer may kill more germs than soap and water. Use them when your hands arent visibly dirty. For best results, follow these steps: Choose a gel or spray that contains at least 60% alcohol. Products with less alcohol may not killgerms. Spread about a tablespoon of seed cleaner operator in the palm of one hand. Rub your hands together briskly, cleaning the backs of your hands, the palms , between your fingers, and up the wrists. Rub until the seed cleaner operator is gone, and your hands are completely dry. Antibacterial soaps: Come in liquid or bar form and are used with water Are no better at removing germs than plain soap Alcohol-based hand transmitter engineer: Come in gels or sprays that dont need water Work as well or better than washing with soap and water Armen last reviewed this educational content on 09/01/201819991268-8009 [employer]. [address] [place] [address]. All rights reserved. This information is not intended as a substitute for professional medical care. Always follow your healthcare professional's instructions. Yizb[employer]mh-Gkpy: Washing Your Hands Armen khan reviewed this educational content on 01/01/201719990829-3295 [employer]. [address] [place] [address]. All rights reserved. This information is not intended as a substitute for professional medical care. Always follow your healthcare professional's instructions. Using a Hand Agricultural Produce Commission Agent [id number]-[id number] Armen khan reviewed this educational content on 08/28/201419993149-7852 [employer]. [address] [place] [address]. All rights reserved. This information is not intended as a substitute for professional medical care. Always follow your healthcare professional's instructions. People RINGER documented in this encounter Progress Notes Virginie Dunbar MD - 06/07/2019 10:45 AM CST Chief complaint: Chief Complaint Patient presents with ROUTINE VISIT HPI Lacy Reyna is a 24 year [...] file Gets together: Not on file Attends gnosticism service: Not on file Active member of [...] History Narrative No domestic abuse or violence Worship preference:none No cats Social History Substance and [...] Office Visit OB Satellites Faculty, Flako Vang [facility] 06/25/2019 Armor Reconnaissance Specialist Visit Maternal Medicine 06/27/2019 Routine Obstetrics & Virginie Dunbar MD Visit Gynecology [address] [place] [phone] Name Type Priority Associated Diagnoses Date/Time ALPHA LAB Routine Supervision of high risk 06/07/2019 1:37 PM BELL RINGER FETOPROTEIN-MATERNAL in second SER trimester 16 weeks [...] Dates Phone Address Type Group [facility] xxxxxxxxx 2019-Present Medicaid HEALTH PLAN - HEALTH MANAGED MEDICAID documented as of this encounter
--- OUTSIDE RECORDS SUMMARY | 2019-06-23 13:52 | XMS REPORT | Summary of Care ---
:1995 Author Organization [address] [address] Care Team Providers Name Role Phone Pcp, Patient Does Not Have A Primary Care Provider Reason for Visit Reason Comments TEST RESULTS [facility] Low Risk Female Encounter Details Date Type Department Care Team Description 06/17/2019 Telephone [facility]'s Virginie Dunbar MD TEST RESULTS ([address] Low Risk Female) [address] [place] [address] [address] [address] [place], [place] [phone] [address] [phone] Allergies No Known Allergiesdocumented as of this encounter (statuses as of 06/18/2019) Medications Medication Sig Dispensed Refills Start Date End Date Status PNV62/FA/OM3/DHA/EPA/FIS Take by mouth. 0 Active H OIL ( GUMMY ORAL) metroNIDAZOLE (FLAGYL) Take 1 tablet by 14 tablet 0 05/29/2019 Active 500 mg mouth 2 (two) tabletIndications: times daily with Vaginitis affecting meals. , antepartum documented as of this encounter (statuses as of 06/18/2019) Active Problems Problem Noted Date Chlamydia infection [...] as of this encounter (statuses as of 06/18/2019) Social History Tobacco Use Types Packs/Day Years [...] Treatment Date Type Specialty Care Team Description 06/25/2019 Workers Compensation Examiner Visit Maternal Medicine 06/27/2019 Routine Obstetrics & Dunbar, MD Virginie Visit Gynecology [address] [place] [phone] Health Maintenance Due Date Last Done [...]
--- OUTSIDE RECORDS SUMMARY | 2019-06-23 13:52 | XMS REPORT | Summary of Care ---
:1995 Author Organization [facility] - [address] [address] Care Team Providers Name Role Phone Pcp, Patient Does Not Have A Primary Care Provider Reason for Visit Reason Comments Results Encounter Details Date Type Department Care Team Description 06/12/2019 Telephone [facility] Women's Virginie Dunbar MD Results Healthcare- [address], [place] [address] [facility] [phone] [place] [phone] Allergies No Known Allergiesdocumented as of this encounter (statuses as of 06/12/2019) Medications Medication Sig Dispensed Refills Start Date End Date Status PNV62/FA/OM3/DHA/EPA/FIS Take by mouth. 0 Active H OIL ( GUMMY ORAL) metroNIDAZOLE (FLAGYL) Take 1 tablet by 14 tablet 0 05/29/2019 Active 500 mg mouth 2 (two) tabletIndications: times daily with Vaginitis affecting meals. , antepartum documented as of this encounter (statuses as of 06/12/2019) Active Problems Problem Noted Date Chlamydia infection [...] as of this encounter (statuses as of 06/12/2019) Social History Tobacco Use Types Packs/Day Years [...] OB Satellites Faculty, Flako Rmchp [facility] 06/25/2019 High School Agriculture Teacher Visit Maternal Medicine 06/27/2019 Routine Obstetrics & Dunbar, MD Virginie Visit Gynecology [address] [place] [phone] Health Maintenance Due Date Last Done Comments [...]
--- OUTSIDE RECORDS SUMMARY | 2019-06-23 13:52 | XMS REPORT | Summary of Care ---
:1995 Author Organization [facility] - [address] [address] Care Team Providers Name Role Phone Pcp, Patient Does Not Have A Primary Care Provider Reason for Visit Reason Comments Results patient calling for gender results Encounter Details Date Type Department Care Team Description 06/14/2019 Telephone [facility] Women's Virginie Dunbar MD Results (patient Healthcare- [address] calling for gender [address] [place] [address] results) [phone] [place], [place] [phone] [address] [phone] Allergies No Known Allergiesdocumented as of this encounter (statuses as of 06/14/2019) Medications Medication Sig Dispensed Refills Start Date End Date Status PNV62/FA/OM3/DHA/EPA/FIS Take by mouth. 0 Active H OIL ( GUMMY ORAL) metroNIDAZOLE (FLAGYL) Take 1 tablet by 14 tablet 0 05/29/2019 Active 500 mg mouth 2 (two) tabletIndications: times daily with Vaginitis affecting meals. , antepartum documented as of this encounter (statuses as of 06/14/2019) Active Problems Problem Noted Date Chlamydia infection [...] as of this encounter (statuses as of 06/14/2019) Social History Tobacco Use Types Packs/Day Years [...] 06/17/2019 Office Visit OB Satellites Faculty, Flako Rmchobdulia [facility] 06/25/2019 Skid Strapper Visit Maternal Medicine 06/27/2019 Routine Obstetrics & Dunbar, MD Virginie Visit Gynecology [address] [place] [phone] Health Maintenance Due Date Last Done [...] ID Effective Dates Phone Address Type Group [facility] [place] [facility] xxxxxxxxx 2019-Present Medicaid HEALTH PLAN - HEALTH MANAGED MEDICAID documented as of this encounter
--- OUTSIDE RECORDS SUMMARY | 2019-06-23 13:52 | XMS REPORT | Summary of Care ---
:1995 Author Organization [facility] Address [address] [place] [address] Care Team Providers Name Role Phone Pcp, Patient Does Not Have A Primary Care Provider Reason for Visit Reason Comments Back Pain 2 days Abdominal Pain 2 days Encounter Details Date Type Department Care Team Description 06/10/2019 Routine [facility] Women's Vanaphan, Susy, Abdominal pain, generalized (Primary Dx); Visit Healthcare- PA-C Acute low back pain without sciatica, unspecified back pain laterality; [address] 17 weeks gestation of [address], [address] [place] [phone] Allergies No Known Allergiesdocumented as of this [...] file Gets together: Not on file Attends sabianist service: Not on file Active member of [...] History Narrative No domestic abuse or violence Quaker preference:none No cats Social History Substance and [...] Visit OB [employer]ellites Faculty, Flako Major 06/25/2019 Bundle Packer Visit Maternal Medicine 06/27/2019 Routine Obstetrics & Dunbar, MD Virginie Visit Gynecology [address] [place] [phone] Health Maintenance Due Date Last Done [...] Phone Address Type Group [facility] [place] [facility] xxxxxxxxx 2019-Present Medicaid HEALTH PLAN - HEALTH MANAGED MEDICAID documented as of this encounter
--- OUTSIDE RECORDS SUMMARY | 2019-06-23 13:52 | XMS REPORT | Summary of Care ---
:1995 Author Organization [facility] Address [address] [place] [address] Care Team Providers Name Role Phone Pcp, Patient Does Not Have A Primary Care Provider Reason for Visit Reason Comments LAB WORK Auth/Cert Status Reason Specialty Diagnoses / Procedures Referred By Contact Referred To Contact Phlebotomy Adc Pob Lab Draw Professional Office Building [address] [place] [address] , [address] [place] [address] Encounter Details Date Type Department Care Team Description 06/07/2019 Sustainable Development Policy Analyst Visit [facility] Virginie Dunbar MD [address] [place] [phone] Missed menses; Professional Office Pob, Adc Lab Main examination or test, positive result; Building Phlebotomy Supervision of high risk , antepartum; Lab Chronic hypertension affecting ; Professional Office Morbid obesity; Building Supervision of high risk in second trimester; [address] [place] [address] 16 weeks gestation of , [address] [place] [address] Allergies No Known Allergiesdocumented as of this encounter (statuses as of 06/11/2019) Medications Medication Sig Dispensed Refills Start Date End Date Status PNV62/FA/OM3/DHA/EPA/FIS Take by mouth. 0 Active H OIL ( GUMMY ORAL) metroNIDAZOLE (FLAGYL) Take 1 tablet by 14 tablet 0 05/29/2019 Active 500 mg mouth 2 (two) tabletIndications: times daily with Vaginitis affecting meals. , antepartum documented as of this encounter (statuses as of 06/11/2019) Active Problems Problem Noted Date Chlamydia infection [...] as of this encounter (statuses as of 06/11/2019) Social History Tobacco Use Types Packs/Day Years [...] Office Visit OB [employer]ell[employer] Faculty, [facility] m 06/25/2019 Sustainable Development Policy Analyst Visit Maternal Medicine 06/27/2019 Routine Obstetrics & Dunbar, MD Virginie Visit Gynecology [address] [place] [phone] Name Type Priority Associated Diagnoses Order Schedule 3 HR GLUCOSE TOLERANCE LAB Routine Supervision of high risk Expected: 06/10, PANEL , antepartum Expires: 06/10/2020 Health Maintenance Due Date Last Done Comments [...] Procedure Name Priority Date/Time Associated Diagnosis Comments HIV 1/2 AG-AB WITH Routine 06/07/2019 1:37 Missed menses Results for this REFLEX PM LEADERSHIP DEVELOPMENT INSTRUCTOR procedure are in examination or test, the results positive result section. CBC WITH DIFFERENTIAL Routine 06/07/2019 1:37 Supervision of high Results for this PM LEADERSHIP DEVELOPMENT INSTRUCTOR risk in procedure are in second trimester the results section. ADC OR ALBINO ONLY - Routine 06/07/2019 1:37 Missed menses Results for this RPR PM LEADERSHIP DEVELOPMENT INSTRUCTOR procedure are in examination or test, the results positive result section. URINE CULTURE Routine 06/07/2019 1:37 Missed menses Results for this PM LEADERSHIP DEVELOPMENT INSTRUCTOR procedure are in examination or test, the results positive result section. HB ABO GROUPING Routine 06/07/2019 1:37 Missed menses Results for this PM LEADERSHIP DEVELOPMENT INSTRUCTOR procedure are in examination or test, the results positive result section. HCV ANTIBODY Routine 06/07/2019 1:37 Missed menses Results for this PM LEADERSHIP DEVELOPMENT INSTRUCTOR procedure are in examination or test, the results positive result section. VZV ANTIBODY SCREEN Routine 06/07/2019 1:37 Missed menses Results for this PM LEADERSHIP DEVELOPMENT INSTRUCTOR procedure are in examination or test, the results positive result section. RUBELLA SCREEN IGG Routine 06/07/2019 1:37 Missed menses Results for this PM LEADERSHIP DEVELOPMENT INSTRUCTOR procedure are in examination or test, the results positive result section. CBC WITH DIFFERENTIAL Routine 06/07/2019 1:37 Supervision of high Results for this PM LEADERSHIP DEVELOPMENT INSTRUCTOR risk in procedure are in second trimester the results section. ALPHA Routine 06/07/2019 1:37 Supervision of high Results for this FETOPROTEIN-MATERNAL PM LEADERSHIP DEVELOPMENT INSTRUCTOR risk in procedure are in SER second trimester the results 16 weeks gestation section. of COMP. METABOLIC PANEL Routine 06/07/2019 1:37 Missed menses Results for this (40010) PM LEADERSHIP DEVELOPMENT INSTRUCTOR procedure are in examination or test, the results positive result section. GLUCOSE 1 HOUR POST Routine 06/07/2019 1:37 Supervision of high Results for this PRANDIAL PM LEADERSHIP DEVELOPMENT INSTRUCTOR risk , procedure are in antepartum the results Missed menses section. examination or test, positive result Chronic hypertension affecting Morbid obesity documented in this encounter Results CBC WITH DIFFERENTIAL (06/07/2019 1:37 PM LEADERSHIP DEVELOPMENT INSTRUCTOR) WBC 10.63 4.30 - 11.10 [facility] 10*3/L HOSPITAL LAB[facility] RBC 3.97 3.93 - 5.25 [facility] 10*6/L [facility]OS[facility]ITAL [facility] HGB 11.3 (L) 11.6 - 15.0 [facility] g/dL [facility]ITAL [facility] HCT 34.6 (L) 35.7 - 45.2 % [facility]OR[facility] MCV 87.2 80.6 - 95.5 fL [facility] MCH 28.5 25.9 - 32.8 pg [facility] MCHC 32.7 31.6 - 35.1 [facility] g/dL [facility] RDW-SD 45.1 39.0 - 49.9 fL [facility] RDW-CV 14.1 12.0 - 15.5 % [facility] PLT 350 166 - 358 [facility] 10*3/L [facility] MPV 11.3 9.5 - 12.9 fL [facility] NRBC/100 WBC 0.0 0.0 - 10.0 /100 [facility] WBCs [facility] NRBC x10^3 <0.01 10*3/L [facility] GRAN MAT (NEUT) % 81.7 % [facility] IMM GRAN % 0.60 % [facility] LYMPH % 13.6 % [facility] MONO % 3.6 % [facility] EOS % 0.3 % [facility] BASO % 0.2 % [facility] GRAN MAT x10^3(ANC) 8.69 (H) 1.88 - 7.09 [facility] 10*3/uL HOSPITAL LAB[facility]ORY IMM GRAN x10^3 0.06 0.00 - 0.06 [facility] 10*3/uL [facility]ITAL [facility] LYMPH x10^3 1.45 1.32 - 3.29 [facility] 10*3/uL [facility]ITAL [facility] MONO x10^3 0.38 0.33 - 0.92 [facility] 10*3/uL [facility]ITAL [facility] EOS x10^3 0.03 0.03 - 0.39 [facility] 10*3/uL [facility]ITAL [facility] BASO x10^3 <0.03 0.01 - 0.07 [facility] 10*3/uL [facility] Specimen Blood Performing Organization Address [facility]/Zipcode Phone Number [facility] CLIA: [id number], [address] [place] [phone] ALPHA FETOPROTEIN-MATERNAL SER (06/07/2019 1:37 PM LEADERSHIP DEVELOPMENT INSTRUCTOR) AFP-MS 13.0 ng/mL [facility]OR[facility] SERVICES AFP-MS Interpretation NTD SCREENING RESULTS: [facility] SERVICES Gestation Age: Weeks 16 days 6 based on _X_ LMP __ PE __ US. Maternal Serum AFP value in ng/mL is 13.0. The corrected AFP MOM is 0.76. NORMAL RANGE is less than 2.5 MOM in NTD screening. The NTD screen result is: _X_ Negative __ Positive with a risk of 1 in Specimen Blood Performing Organization Address [facility] [place] Phone Number [facility] SERVICES CLIA: [id number], [address] [place] [address] [facility] GLUCOSE 1 HOUR POST PRANDIAL (06/07/2019 1:37 PM LEADERSHIP DEVELOPMENT INSTRUCTOR) GLUC 1 HR 148 120 - 170 mg/dL [facility] LABOR[facility]ORY Specimen Blood Performing Organization Address [facility] [place] Phone Number [facility] CLIA: [id number], [address] [place] [address] [phone] RUBELLA SCREEN IGG (06/07/2019 1:37 PM LEADERSHIP DEVELOPMENT INSTRUCTOR) Pathologist [facility] Rubella screen IgG Positive Negative [facility] SERVICES Specimen Blood Narrative Performed At Positive - Indicates the patient was exposed to Rubella [facility] SERVICES through infection or vaccination. Negative - Indicates the patient could be susceptible to Rubella infection. Equivocal - A second specimen should be sent. Performing Organization Address [facility] Phone Number [facility] CLIA: [id number], [address] [place] [phone] [facility] URINE CULTURE (06/07/2019 1:37 PM LEADERSHIP DEVELOPMENT INSTRUCTOR) Pathologist [facility] URINE CULTURE < 10,000 CFU/mL mixed [facility] LABORATORY aerobic organisms - SERVICES suggests endogenous microbial contamination Specimen Urine - URINE, CLEAN CATCH Performing Organization Address City/[facility] Cent[facility] Phone Number [facility] SERVICES CLIA: [id number], [address] [place] [address] [facility] VZV ANTIBODY SCREEN (06/07/2019 1:37 PM LEADERSHIP DEVELOPMENT INSTRUCTOR) Pathologist [facility] VZV IgG antibody Positive Negative [facility] SERVICES Specimen Blood Narrative Performed At Positive - Indicates the patient was exposed to VZV through [facility] SERVICES infection or vaccination. Negative - Indicates the patient could be susceptible to VZV infection. Equivocal - A second specimen should be sent for testing. Performing Organization Address City/[facility] Cent[facility]ode Phone Number [facility] SERVICES CLIA: [id number], [address] [place] [phone] [facility] HCV ANTIBODY (06/07/2019 1:37 PM LEADERSHIP DEVELOPMENT INSTRUCTOR) Pathologist [facility] HCV Ab Negative [facility] SERVICES HCV Semi-Quantitative 0.03 [facility] SERVICES Specimen Blood Performing Organization Address [facility] Phone Number [facility] SERVICES CLIA: [id number], [address] [place] [address] [facility] ADC OR ALBINO ONLY - RPR (06/07/2019 1:37 PM LEADERSHIP DEVELOPMENT INSTRUCTOR) Pathologist [facility] RPR (Qualitative) Nonreactive Nonreactive [facility] LABOR[facility]ORY Specimen Blood Performing Organization Address [facility] Centercode Phone Number [facility] CLIA: [id number], [address] [place] [address] HIV 1/2 AG-AB WITH REFLEX (06/07/2019 1:37 PM LEADERSHIP DEVELOPMENT INSTRUCTOR) Pathologist [facility] HIV 1/2 Ag-Ab with Negative Negative [facility] Reflex [facility] HIV Semi-quantitative 0.06 [facility] LABOR[facility] Specimen Blood Narrative Performed At Non-reactive for HIV-1 antigen and HIV-1/HIV-2 [facility] LABORATORY antibodies. No laboratory evidence of HIV infection. Repeat in 2-4 weeks if acute HIV infection is suspected. Performing Organization Address [facility] Centercode Phone Number [facility] CLIA: [id number], [address] [place] [address] COMP. METABOLIC PANEL (68050) (06/07/2019 1:37 PM LEADERSHIP DEVELOPMENT INSTRUCTOR) NA 135 135 - 145 [facility] mmol/L [facility] K 4.1 3.5 - 5.0 [facility] mmol/L [facility] CL 103 98 - 108 mmol/L [facility] CO2 TOTAL 23 23 - 31 mmol/L [facility] AGAP 9 2 - 16 [facility] BUN 5 (L) 7 - 23 mg/dL [facility] GLUCOSE 152 (H) 70 - 110 mg/dL [facility] LAB[facility]ORY CREATININE 0.49 (L) 0.50 - 1.04 [facility] mg/dL [facility] TOTAL BILI 0.2 0.1 - 1.1 mg/dL [facility]ORY CALCIUM 9.1 8.6 - 10.6 [facility] mg/dL [facility] T PROTEIN 6.9 6.3 - 8.2 g/dL [facility] LABOR[facility]ORY ALBUMIN 3.9 3.5 - 5.0 g/dL [facility] LABORATORY ALK PHOS 56 34 - 122 U/L [facility] LABORATORY ALTv 13 5 - 35 U/L [facility] LABOR[facility]ORY AST(SGOT) 16 13 - 40 U/L [facility] LABORATORY eGFR Calculation 156.5 mL/min/1.73m2 [facility] ([facility] Indonesian) eGFR Calculation 189.7 mL/min/1.73m2 [facility] ([facility]) [facility] Specimen Blood Narrative Performed At Association of Glomerular Filtration Rate (GFR) [facility] LABORATORY and Staging of Kidney Disease* + [...] tests). Performing Organization Address City/State/Zipcode Phone Number [facility] CLIA: [id number], [address] [place] [address] WORKUP, BLOOD BANK (06/07/2019 1:37 PM LEADERSHIP DEVELOPMENT INSTRUCTOR) ABO & RH O Positive LAB Comment: Performed at [facility] Laboratory Services - [facility] Blood Bank [address] [place] [phone] Toll Free: [phone] CLIA No. [id number] IAT Negative LAB Comment: Performed at [facility] Laboratory [facility] - [facility] Blood Bank [address] [place] [phone] Toll Free: [phone] CLIA No. [id number] Specimen Blood - VENOUS Performing Organization Address City/State/Zipcode Phone Number BLD LAB documented in this [...] Effective Dates Phone Address Type Group [facility] xxxxxxxxx 2019-Present Medicaid HEALTH PLAN - HEALTH MANAGED MEDICAID documented as of this encounter"
--- OUTSIDE RECORDS SUMMARY | 2019-06-23 13:52 | XMS REPORT | Summary of Care ---
:1995 Author Organization [facility] Address [address] [place] [address] Care Team Providers Name Role Phone Pcp, Patient Does Not Have A Primary Care Provider Reason for Visit Reason Comments MFM Visit (Routine) Status Reason Specialty Diagnoses / Referred By Referred To Procedures Contact Contact Closed Maternal Diagnoses Supervision of high risk , antepartum Chronic hypertension affecting Morbid obesity Virginie Dunbar, Medicine Procedures CONSULT/REFERRAL MATERNAL MEDICINE FACULTY/FELLOW Preferred location: Elidia GUERIN [address] [place] [phone] Encounter Details Date Type Department Care Team Description 06/17/2019 Office Visit [facility]- See Vaughn MD [address] [facility] [id number] [place] [address] Obesity affecting [place] Faculty, [facility] in first [address] trimester (Primary Dx) [place] [phone] Allergies No Known Allergiesdocumented as of this encounter (statuses as of 06/17/2019) Medications Medication Sig Dispensed Refills Start Date End Date Status PNV62/FA/OM3/DHA/EPA/FIS Take by mouth. 0 Active H OIL ( GUMMY ORAL) metroNIDAZOLE (FLAGYL) Take 1 tablet by 14 tablet 0 05/29/2019 Active 500 mg mouth 2 (two) tabletIndications: times daily with Vaginitis affecting meals. , antepartum documented as of this encounter (statuses as of 06/17/2019) Active Problems Problem Noted Date Chlamydia infection [...] as of this encounter (statuses as of 06/17/2019) Social History Tobacco Use Types Packs/Day Years [...] Sign Reading Time Taken Comments Blood Pressure 121/75 06/17/2019 2:20 PM CDT Pulse 85 06/17/2019 2:20 PM CDT Temperature 36.1 C (97 F) 06/17/2019 2:20 PM CDT Respiratory Rate 16 06/17/2019 2:20 PM CDT Oxygen Saturation - - Inhaled Oxygen Concentration - - Weight 148.9 kg (328 lb 6 oz) 06/17/2019 2:20 PM CDT Height 162.6 cm (5' 4") 06/17/2019 2:20 PM CDT Body Mass Index 56.37 06/17/2019 2:20 PM CDT documented in this encounter Progress Notes See Vaughn MD - 06/17/2019 1:30 PM CDT Chief complaint: Chief Complaint Patient presents with MFM Visit HPI Histories OB History Para Term AB Living [...] file Gets together: Not on file Attends quaker service: Not on file Active member of [...] History Narrative No domestic abuse or violence Yarsanism preference:none No cats Social History Substance and Sexual Activity Sexual Activity Yes Partners: Male control/protection: None Labs No new labs Radiology No new radiology. Allergies Lacy has No Known Allergies. Medications Lacy has a current medication list which includes the following prescription(s): metronidazole and vits62/fa/om3/dha/epa. Review of Systems BP 121/75 (BP Location: Right arm, Patient Position: Sitting, BP CUFF SIZE: Adult Large) | Pulse 85 | Temp 36.1 C (97 F) (Oral) | Resp 16 | Ht 5' 4" (1.626 m) | Wt 328 lb 6 oz (148.9 kg) | LMP 02/09/2019 | BMI 56.37 kg/m Pregravid BMI: 54.9 Physical Exam Assessment/Plan Return to clinic in 2 weeks. This visit did not involve counseling and coordination that comprised more than 50% of the visit time. documented in this encounter Plan of Treatment Date Type Specialty Care Team Description 06/25/2019 Home Health Outreach Coordinator Visit Maternal Medicine 06/27/2019 Routine Obstetrics & Dunbar, MD Virginie Visit Gynecology [address] [place] [phone] Health Maintenance Due Date Last Done Comments [...] encounter Procedures Procedure Name Priority Date/Time Associated Comments Diagnosis POCT URINALYSIS W/O Routine 06/17/2019 2:21 PM Obesity affecting Results for this SPECIFIC GRAVITY CDT in first procedure are in trimester the results section. documented in this encounter Results POCT URINALYSIS W/O SPECIFIC GRAVITY (06/17/2019 2:21 PM CDT) POCT PH U . 5 - 8 mg/dl POCT U LEUK EST 6 Negative - Negative POCT U NIT neg Negative - Negative POCT U PROT neg Negative - Negative POCT U GLU trace Negative - Negative POCT U KETONE neg Negative - Negative POCT U BLD neg Negative - Negative Specimen Urine - URINE, CLEAN CATCH documented in this encounter Visit Diagnoses Diagnosis Obesity affecting in first trimester - Primary documented in this encounter Insurance Payer Benefit Plan / Subscriber ID Effective Dates Phone Address Type Group [facility] xxxxxxxxx 2019-Present Medicaid HEALTH PLAN - HEALTH MANAGED MEDICAID documented as of this encounter
--- OUTSIDE RECORDS SUMMARY | 2019-06-23 13:52 | XMS REPORT | Summary of Care ---
:1995 Author Organization [address] [address] Care Team Providers Name Role Phone Pcp, Patient Does Not Have A Primary Care Provider Reason for Visit Reason Comments TEST RESULTS [facility] Low Risk Female Encounter Details Date Type Department Care Team Description 06/17/2019 Telephone [facility]'s Virginie Dunbar MD TEST RESULTS ([address] Low Risk Female) [address] [place] [address] [address] [phone] [place], [place] [phone] [address] [phone] Allergies No Known Allergiesdocumented as of this [...] Date Type Specialty Care Team Description 06/25/2019 Laboratory Development Technician Visit Maternal Medicine 06/27/2019 Routine Obstetrics & Dunbar, MD Virginie Visit Gynecology [address] [place] [phone] Health Maintenance Due Date Last Done [...]
--- OUTSIDE RECORDS SUMMARY | 2019-06-23 13:52 | XMS REPORT | Summary of Care ---
:1996 Author Organization [facility] Address [address] [place] [address] Care Team Providers Name Role Phone Pcp, Patient Does Not Have A Primary Care Provider Reason for Visit Reason Comments MFM Visit (Routine) Status Reason Specialty Diagnoses / Referred By Referred To Procedures Contact Contact Closed Maternal Diagnoses Supervision of high risk , antepartum Chronic hypertension affecting Morbid obesity Virginie Dunbar, Medicine Procedures CONSULT/REFERRAL MATERNAL MEDICINE FACULTY/FELLOW Preferred location: Elidia GUERIN [address] [place] [phone] Encounter Details Date Type Department Care Team Description 06/17/2019 Office Visit [facility]- See Vaughn MD [address] [facility] [id number] [place] [address] Obesity affecting [place] Faculty, [facility] in first [address] trimester (Primary Dx) [place] [address] Allergies No Known Allergiesdocumented as [...] file Gets together: Not on file Attends nondenominational service: Not on file Active member of [...] History Narrative No domestic abuse or violence Nondenominational preference:none No cats Social History Substance and [...] Date Type Specialty Care Team Description 06/25/2019 Locks Inspector Visit Maternal Medicine 06/27/2019 Routine Obstetrics & Dunbar, MD Virginie Visit Gynecology [address] [place] [phone] Health Maintenance Due Date Last Done Comments [...] ID Effective Dates Phone Address Type Group [facility] xxxxxxxxx 2019-Present Medicaid HEALTH PLAN - HEALTH MANAGED MEDICAID documented as of this encounter
--- NOTE | 2019-06-23 14:10 | ER ---
Nurse's Notes [facility] Name: Lacy Reyna Age: 24 yrs Sex: Female : 1995 Arrival Date: 06/23/2019 Time: 13:49 Bed 17 Private MD: Diagnosis: Nasal congestion Presentation: 06/22 13:58 Chief complaint: Patient states: Woke up with stuffy nose today. Denies cough and ca1 fever. Pt reports being . Coronavirus screen: Patient reports a subjective fever or greater than 100.4F, or cough, or shortness of breath, or difficulty breathing. Surgical mask placed on patient. Patient moved to private room, placed in contact and droplet isolation with eye protection until further assessment. Patient denies travel on a cruise ship or to a country the [facility] currently lists as an affected area. Patient denies contact with known and/or suspected case of COVID-19. Pt denies cough and fever. Ebola Screen: Patient negative for fever greater than or equal to 101.5 degrees Fahrenheit, and additional compatible Ebola Virus Disease symptoms Patient denies exposure to infectious person. Patient denies travel to an Ebola-affected area in the 21 days before illness onset. No symptoms or risks identified at this time. Initial Sepsis Screen: Does the patient meet any 2 criteria? No. Patient's initial sepsis screen is negative. Does the patient have a suspected source of infection? No. Patient's initial sepsis screen is negative. Risk Assessment: Do you want to hurt yourself or someone else? Patient reports no desire to harm self or others. Onset of symptoms was June 23, 2019. 13:58 Method Of Arrival: Ambulatory ca1 13:58 Acuity: FILI 4 ca1 Triage Assessment: 14:01 General: Appears in no apparent distress. comfortable, Behavior is calm, cooperative, ca1 appropriate for age. Pain: Denies pain. EENT: Reports nasal congestion since this morning. Neuro: Level of Consciousness is awake, alert, obeys commands, Oriented to person, place, time, situation, Appropriate for age. Respiratory: Airway is patent Respiratory effort is even, unlabored, Respiratory pattern is regular, symmetrical, Breath sounds are clear bilaterally. Denies cough. Derm: Skin is intact, is healthy with good turgor, Skin is pink, warm \T\ dry. Musculoskeletal: Circulation, motion, and sensation intact. Capillary refill < 3 seconds. STUDY MANAGER: 14:19 LMP 02/09/2019 ca1 Historical: - Allergies: 14:01 No Known Allergies; ca1 - Home Meds: 14: oral oral [Active]; ca1 - PMHx: 14: Hypertension; ca1 - PSHx: 14:01 ; ca1 - Immunization history:: Adult Immunizations not up to date, Flu vaccine is not up to date. - Social history:: Smoking status: Patient denies any tobacco usage or history of. Screenin:03 Abuse screen: Denies threats or abuse. Denies injuries from another. Nutritional ca1 screening: No deficits noted. Tuberculosis screening: No symptoms or risk factors identified. Fall Risk None identified. Assessment: 14:03 Reassessment: SEE TRIAGE ASSESSMENT. ca1 Vital Signs: 13:58 BP 149 / 84; Pulse 90; Resp 17 S; Temp 98(O); Pulse Ox 100% on R/A; Weight 148.78 kg ca1 (R); Height 5 ft. 4 in. (162.56 cm) (R); Pain 0/10; 13:58 Body Mass Index 56.30 (148.78 kg, 162.56 cm) ca1 ED Course: 13:49 Patient arrived in ED. as 13:50 Roman Mantilla FNP-C [facility]. la1 13:50 Tj Lin MD is Attending Physician. la1 13:52 Brunilda Eason RN is Primary Nurse. ca1 14:01 Triage completed. ca1 14:01 Arm band placed on right wrist. ca1 14:03 Patient has correct armband on for positive identification. Bed in low position. Call ca1 light in reach. Side rails up X 1. Pulse ox on. NIBP on. 14:03 No provider procedures requiring assistance completed. Patient did not have IV access ca1 during this emergency room visit. Administered Medications: No medications were administered Outcome: 14:09 Discharge ordered by . la1 14:19 Discharged to home ambulatory. ca1 14:19 Condition: stable 14:19 Discharge instructions given to patient, Instructed on discharge instructions, follow up and referral plans. Demonstrated understanding of instructions, follow-up care. 14:19 Patient left the ED. ca1 Signatures: Cheyanne Moreira as Roman Mantilla FNP-C TECHNICIAN INVENTORY SPECIALIST-[facility] Acob, Brunilda, RN RN ca1
--- NOTE | 2019-06-23 14:11 | EDPHYS ---
Physician Documentation [facility] Name: Lacy Reyna Age: 24 yrs Sex: Female : 1995 Arrival Date: 06/23/2019 Time: 13:49 Bed 17 Private MD: ED Physician Tj Lin HPI: 06/22 14:05 This 24 yrs old Female presents to ER via Ambulatory with complaints of Cold la1 Symptoms - 18 wks preg. 14:05 The patient or guardian reports nasal congestion . Onset: The symptoms/episode la1 began/occurred this morning. Modifying factors: The symptoms are alleviated by nothing. the symptoms are aggravated by nothing. Associated signs and symptoms: Pertinent negatives: fever. Severity of symptoms: At their worst the symptoms were very mild. The patient has experienced similar episodes in the past. pt is 18 weeks , reports she has had nasal congestion since this morning and her family was concerned so she came to the ED. CASE MANAGEMENT DIRECTOR: 14:19 LMP 02/09/2019 ca1 Historical: - Allergies: 14:01 No Known Allergies; ca1 - Home Meds: 14:01 oral oral [Active]; ca1 - PMHx: 14:01 Hypertension; ca1 - PSHx: 14:01 ; ca1 - Immunization history:: Adult Immunizations not up to date, Flu vaccine is not up to date. - Social history:: Smoking status: Patient denies any tobacco usage or history of. ROS: 14:06 Constitutional: Negative for fever, chills, and weight loss, Eyes: Negative for injury, la1 pain, redness, and discharge, Cardiovascular: Negative for chest pain, palpitations, and edema, Respiratory: Negative for shortness of breath, cough, wheezing, and pleuritic chest pain, Abdomen/GI: Negative for abdominal pain, nausea, vomiting, diarrhea, and constipation, MS/Extremity: Negative for injury and deformity, Skin: Negative for injury, rash, and discoloration, Neuro: Negative for headache, weakness, numbness, tingling, and seizure. 14:06 Constitutional: 14:06 ENT: Positive for nasal congestion. Exam: 14:06 Constitutional: This is a well developed, well nourished patient who is awake, alert, la1 and in no acute distress. Head/Face: Normocephalic, atraumatic. 14:06 Cardiovascular: Regular rate and rhythm with a normal S1 and S2. No gallops, murmurs, or rubs. Normal PMI, no JVD. No pulse deficits. Respiratory: Lungs have equal breath sounds bilaterally, clear to auscultation and percussion. No rales, rhonchi or wheezes noted. No increased work of breathing, no retractions or nasal flaring. MS/ Extremity: Pulses equal, no cyanosis. Neurovascular intact. Full, normal range of motion. 14:06 ENT: External ear(s): are unremarkable, Ear canal(s): are normal, TM's: are normal, Nose: External nose: no obvious acute abnormality, Nasal mucosa: edematous, erythematous, Turbinates: are swollen on the left, Mouth: is normal, Posterior pharynx: is normal, airway is patent, Airway: normal. Vital Signs: 13:58 BP 149 / 84; Pulse 90; Resp 17 S; Temp 98(O); Pulse Ox 100% on R/A; Weight 148.78 kg ca1 (R); Height 5 ft. 4 in. (162.56 cm) (R); Pain 0/10; 13:58 Body Mass Index 56.30 (148.78 kg, 162.56 cm) ca1 MDM: 13:54 Patient medically screened. la1 14:07 Data reviewed: vital signs, nurses notes, and as a result, I will discharge patient. la1 Data interpreted: Pulse oximetry: on room air is 100 %. Interpretation: normal. Counseling: I had a detailed discussion with the patient and/or guardian regarding: the historical points, exam findings, and any diagnostic results supporting the discharge/admit diagnosis, lab results, the need for outpatient follow up, a family practitioner, an OB/Gyne specialist, to return to the emergency department if symptoms worsen or persist or if there are any questions or concerns that arise at home. ED course: pt feeling baby move today, very active, no fevers or cough, pt reports she gets allergies frequently but did not want to take anything due to being unsure what is safe. Recommended flonase for sx control and instructed to FU with OB/PCP, strict return precautions given. Administered Medications: No medications were administered Disposition: 18:09 Co-signature as Attending Physician, Tj Lin MD I agree with the assessment and kdr plan of care. Disposition: 06/23/19 14:09 Discharged to Home. Impression: Nasal congestion. - Condition is Stable. - Discharge Instructions: Nasal Allergies, Nasal Allergies, [id number]. - Medication Reconciliation Form, Thank You Letter form. - Follow up: Private Physician; When: 2 - 3 days; Reason: Recheck today's complaints, Re-evaluation by your physician. - Problem is new. - Symptoms have improved. Signatures: Tj Lin MD MD kdr Roman Mantilla, [employer] RADIO OPERATOR-C [employer]IO [employer]PERATOR-[facility] Brunilda Eason RN RN ca1 Corrections: (The following items were deleted from the chart) 14:19 14:09 06/23/2019 14:09 Discharged to Home. Impression: Nasal congestion. Condition is ca1 Stable. Forms are Medication Reconciliation Form, Thank You Letter, Antibiotic Education, Prescription Opioid Use. Follow up: Private Physician; When: 2 - 3 days; Reason: Recheck today's complaints, Re-evaluation by your physician. Problem is new. Symptoms have improved. la1
[2019-06-23 14:26] VITALS: BP 149/84; TEMP 98; O2SAT 100
== END 2019-06-23 14:19 | disposition home or self-care (01) ==
LOC: ER 13:47
DX: O26.892 Other specified pregnancy related conditions, second trimester (principal); R09.81 Nasal congestion
CPT/HCPCS: 99283

== ENCOUNTER 2020-11-01 13:13 | Emergency (ER) | payer OTHER, SELFPAY ==
--- OUTSIDE RECORDS SUMMARY | 2020-11-01 13:18 | XMS REPORT | Continuity of Care Document ---
:1995 Author Organization [facility] t Address [address] [place] [address] Care Team Providers Name Role Phone Margarita CASTRO Attending Clinician Bettina GUERIN Attending Clinician Jeanne Green APN Attending Clinician Chandana GUERIN Attending Clinician Doctor Unassigned, Name Attending Clinician Unavailable Max GUERIN, R Attending Clinician Matt GUERIN M Attending Clinician Ultrasound Attending Clinician Unavailable Jeanne Villagran MA Attending Clinician Unavailable JEROD Attending Clinician Unavailable DR DONALD Attending Clinician Unavailable Michelle GUERIN Admitting Clinician Chauncey Gutierrez MD Admitting Clinician DR DONALD Admitting Clinician Unavailable Problems Condition Condition Condition Status Onset Resolution Last Treating Co mments Source Name Details Category Date Date Treatment Clinician Date History of History of Problem Resolve Univers Elevated Elevated d ity of blood blood [place] pressure pressure Physic i reading reading ans Abnormal Abnormal Problem Active Unive rs vaginal vaginal ity of bleeding bleeding [place] Physici ans Screening Screening Problem Active Uni vers for for ity of diabetes diabetes [place] mellitus mellitus Physic i ans Miscarriag Miscarriag Problem Active U nivers e e ity of [place] Physici ans Allergies, Adverse Reactions, Alerts This patient has no known allergies or adverse reactions. Family History Family Member Diagnosis Comments Start Date Stop Date Source Sibling Family history of [facility] ity of [place] malignant neoplasm of Phy sicians ovary Grandmother Family history of [facility] [place] malignant neoplasm of Phy sicians ovary Mother Family history of [facility] [place] malignant neoplasm of Phy sicians ovary Mother Family history of [facility] [place] diabetes mellitus Physici ans Mother Family history of [facility] [place] hypertension Physicians Social History Social Habit Start Date Stop Date Quantity Comments Source Sex Assigned At [facility] Medications Ordered Filled Start Stop Current Ordering Indication Dosage Frequency Signature Comments Components Source Medication Medication Date Date Medication? Clinician (SIG) Name Name Yes PAM QD TAKE 1 U [facility] Vitamin Vitamin 8-07 JEROD TABLET ity of 27-0.8 MG 27-0.8 MG 00:00: M.D. DAILY [place] Oral Tablet Oral Tablet 00 DIRECTED. Physici ans Vital Signs Vital Name Observation Time Observation Value Comments Source BP Systolic 2018-11-07 105 mm[Hg] Location: [facility] 10:37:00 Position: [place] Physician s Sitting BP Diastolic 2018-11-07 71 mm[Hg] Location: [facility] 10:37:00 Position: [place] Physician s Sitting Height 2018-11-07 64 [in_us] [facility] 10:37:00 [place] Physician s Weight 2018-11-07 305 [lb_av] [facility] 10:37:00 [place] Physician s Body Mass Index 2018-11-07 52.35 kg/m2 [facility] Calculated 10:37:00 [place] Physician s Temperature 2018-11-07 98.7 [degF] Method: Oral [facility] 10:37: [place] Physician s Heart Rate 2018-11-07 80 /min Location: [facility] 10:37:00 Brachial [place] Physician s Artery; O2 SAT 2018-11-07 98 % Source: RA [facility] 10:37:00 [place] Physician s Procedures Procedure Date / Time Performing Clinician Source Performed [L] hCG,Beta 2018-11-07 00:00:00 [facility] [place] Subunit,Qnt,Serum Physicians [QLH] CBC (INCLUDES 2018-11-07 00:00:00 [facility] DIFF/PLT) Physicians [QL] CMP W/EGFR 2018-11-07 00:00:00 [facility] [QLH] LIPID PANEL 2018-11-07 00:00:00 [facility] [QLH] HEMOGLOBIN A1c 2018-11-07 00:00:00 [facility] Physicians [L] HIV 1/O/2 2018-11-07 00:00:00 [place] [facility] Antigen/Antibody Fourth Physicia ns Generation Preliminary Test with Burnett to Supplementary Testing US Pelvis with Pelvis 2018-11-07 00:00:00 [facility] Transvaginal [id number] Physicians History of [place] [facility] Section Physicians Plan of Care Planned Activity Planned Date Details Comments Source Future Scheduled Test 2021-01-01 00:00:00 IMM Influenza [facility] Seasonal Jan to June (>/= 19 yrs) [code = IMM Influenza Seasonal Jan to June (>/= 19 yrs)] Future Scheduled Test 2017-01-01 00:00:00 Screening for [facility] malignant neoplasm of cervix (procedure) [code = 292646125] Future Scheduled Test 2008 00:00:00 COVID-19 Vaccine (1) [facility] [code = COVID-19 Vaccine (1)] Encounters Start End Encounter Admission Attending Care Care Encounter Source Date/Time Date/Time Type Type Clinicians Facility Department ID 2020-07-29 2020-07-29 Telephone Margarita [facility] 1.2.840.114 [id number] 00:00:00 00:00:00 Susy Denny [id number] [place] [id number] Professio [id number] [address] 2019-10-15 2019-10-15 Case Bettina [facility] 1.2.840.114 [id number] 00:00:00 00:00:00 Management Virginie Denny [id number] [place] 4.2.7.2.686 Professio [phone] [address] 2019-09-26 2019-09-26 Emergency Green Naeem Jeanne [facility] 1.2.840 .114 [id number] 13:03:23 18:00:00 Cj [place] [id number] [place] 4.2.7.2.686 [place] [id number] 084 2019-09-26 2019-09-26 Orders Doctor DURGA 1.2.840.114 [id number] 00:00:00 00:00:00 Only Unassigned, KEON [id number] [place] [facility] 4.2.7.2.686 [id number] 009 2019-08-22 2019-08-22 Telephone [facility] 1.2.840.114 [id number] 00:00:00 00:00:00 [facility] [id number] [facility] 4.2.7.2.686 [id number] 2019-08-21 2019-08-21 Telephone [place], [facility] 1.2.840.114 [id number] 00:00:00 00:00:00 Virginie Denny [id number] [place] 4.2.7.2.686 Professio [phone] [address] 2019-08-21 2019-08-21 Orders Doctor DURGA 1.2.840.114 [id number] 00:00:00 00:00:00 Only Unassigned, KEON [id number] [place] [facility] 4.2.7.2.686 [id number] 009 2019-08-19 2019-08-19 Telephone [place], [facility] 1.2.840.114 [id number] 00:00:00 00:00:00 Virginie Denny 350.1.13.10 [place] 4.2.7.2.686 Professio [phone] [address] 2019-08-19 2019-08-19 Patient [place], [facility] 1.2.840.114 [id number] 00:00:00 00:00:00 Secure Msg Virginie Denny [id number] [place] 4.2.7.2.686 Professio [id number] [address] 2019-08-12 2019-08-14 [facility] [id number] 08:01:00 14:00:00 Encounter Kip HERBERT 350.1.13.10 [place] 4.2.7.2.686 [id number] 070 2019-06-25 2019-08-14 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 Ultrasound, [facility] 1.2.840.114 [id number] 08:47:10 08:58:34 Visit Flako-m OCTAVE [employer]ARD RACKER [id number] [facility] 4.2.7.2.686 MATERNAL [id number] & CHILD [address] [place] [address] 2019-08-13 2019-08-13 Telephone Bettina, [facility] 1.2.840.114 [id number] 00:00:00 00:00:00 Virginie Denny 350.1.13.10 [place] 4.2.7.2.686 Professio [id number] [address] 2019-08-13 2019-08-13 Patient [place], [facility] 1.2.840.114 [id number] 00:00:00 00:00:00 Secure Msg Sandra Denny 350.1.13.10 [place] 4.2.7.2.686 Professio [phone] [address] 2019-08-13 2019-08-13 Patient Bettina, [facility] 1.2.840.114 [id number] 00:00:00 00:00:00 Secure Msg Virginie Denny 350.1.13.10 [place] 4.2.7.2.686 Professio [id number] [address] 2019-08-12 2019-08-12 Orders Doctor DURGA 1.2.840.114 [id number] 00:00:00 00:00:00 Only Unassigned, KEON 350.1.13.10 [place] [facility] 4.2.7.2.686 [id number] [id number] 2019-08-08 2019-08-08 Patient Doctor [facility] 1.2.840.114 [id number] 00:00:00 00:00:00 Secure Msg UnassEduin kumar 350.1.13.10 [place] 4.2.7.2.686 Professio [id number] [address] 2018-12-10 2018-12-10 AppointYESICA [place] [id number] Univers 10:40:00 10:40:00 t; Dmitriy OROZCO M.D. [place] VANITA, Physici M.D. [facility] 2018-11-07 2018-11-07 Appointmen YESICA NEWSOME Multispecia [id number] Univers 10:40:00 10:40:00 t; braydon OROZCO M.D. [place] VANITA, Physici M.D. [facility] 2018-10-13 2018-10-14 Emergency E BA, SUSANNE [facility] [id number] 21:06:00 00:00:00 Medica l Center 2018-10-10 2018-10-10 Emergency [facility] [id number] [place] 01:19:37 01:19:37 Health 2018-10-09 2018-10-09 Emergency [facility] [id number] [place] 22:50:46 22:50:46 Health Results Test Description Test Time Test Comments Results Result Comments Source [[facility]] CBC (INCLUDES DIFF/PLT) 2018-11-08 10:28:00 Test Item Value Reference Range Interpretation Comme nts WBC (test code = 6690-2) 8.5 {x10E3/uL} 3.4-10.8 RBC (test code = 789-8) 4.54 {x10E6/uL} 3.77-5.28 Hemoglobin (test code = 718-7) 12.9 g/dL 11.1-15.9 Hematocrit (test code = 4544-3) 39.6 % 34.0-46.6 MCV (test code = 787-2) 87 fL 79-97 MCH (test code = 785-6) 28.4 pg 26.6-33.0 MCHC (test code = 786-4) 32.6 g/dL 31.5-35.7 RDW (test code = 788-0) 15.0 % 12.3-15.4 Platelets (test code = 777-3) 372 {x10E3/uL} 150-450 Neutrophils (test code = 770-8) 70 % Not Estab. Lymphs (test code = 736-9) 22 % Not Estab. Monocytes (test code = 5905-5) 6 % Not Estab. Eos (test code = 713-8) 2 % Not Estab. Basos (test code = 706-2) 0 % Not Estab. Immature Cells (test code = Immature Cells) See Comment Neutrophils (Absolute) (test code = 751-8) 6.0 {x10E3/uL} 1.4-7.0 Lymphs (Absolute) (test code = 731-0) 1.8 {x10E3/uL} 0.7-3.1 Monocytes(Absolute) (test code = 742-7) 0.6 {x10E3/uL} 0.1-0.9 Eos (Absolute) (test code = 711-2) 0.1 {x10E3/uL} 0.0-0.4 Baso (Absolute) (test code = 704-7) 0.0 {x10E3/uL} 0.0-0.2 Immature Granulocytes (test code = 31821-5) 0 % Not Estab. Immature Grans (Abs) (test code = 42176-4) 0.0 {x10E3/uL} 0.0-0.1 NRBC (test code = 28241-5) See Comment Hematology Comments: (test code = 64055-4) See Comment [facility]] LIPID [id number] 10:28:00 Test Item Value Reference Range Interpretation Comments Cholesterol, Total 149 mg/dL 100-199 (test code = 2093-3) Triglycerides; Above 166 mg/dL 0-149 High Threshold (test code = 2571-8) HDL Cholesterol (test 45 mg/dL >39 code = 2085-9) VLDL Cholesterol Can 33 mg/dL 5-40 (test code = 25752-8) LDL Cholesterol Calc 71 mg/dL 0-99 (test code = 33863-4) Comment: (test code = See Comment Comment:) LDL/HDL Ratio (test 1.6 {ratio} 0.0-3.2 LDL/HDL Ratio code = 65342-7) Men Women 1/2 Avg.Risk 1.0 1.5 Avg.Risk 3.6 3.2 2X Avg.Risk 6.2 5.0 3X Avg.Risk 8.0 6.1 [facility]] HEMOGLOBIN [id number] 10:28:00 Test Item Value Reference Range Interpretation Comments Hemoglobin A1c (test code 5.5 % 4.8-5.6 . Prediabetes: = 4548-4) 5.7 - 6.4 Diabetes: >6.4 Glycemic contro l for adults with criss betes: <7.0 [facility][L] HIV 1/O/2 Antigen/Antibody Fourth Generation Preliminary Test with Burnett to Supplementary [id number] 10:28:00 Test Item Value Reference Range Interpretation Comments HIV Screen 4th Generation wRfx Non Reactive Non Reactive (test code = 59849-4) [facility][L] hCG,Beta Subunit,Qnt,[id number] 10:28:00 Test Item Value Reference Range Interpretation Comments hCG,Beta <1 Female (Non-pre gnant) 0 Subunit,Qnt,Serum-004 - 5 417L (test code = 18956-9) (Postmenopausal ) 0 - 8 . Female () Weeks of Gestation 3 6 - 71 4 10 - 750 5 21 7 - 8938 6 158 - 85156 7 3 878 -814903 8 91392 -356965 9 6 7161 -658649 1 0 58817 -424205 12 2 1707 -806810 1 4 57833 - 30429 15 1 2525 - 82611 1 6 8488 - 30360 17 9376 - 97263 1 8 6757 - 44633Ro yobany ECLIA methodology [facility]] CMP [id number] 10:28:00 Test Item Value Reference Range Interpretation Comments Glucose (test code = 2345-7) 99 mg/dL 65-99 BUN (test code = 3094-0) 12 mg/dL 6-20 Creatinine (test code = 0.62 mg/dL 0.57-1.00 2160-0) eGFR If NonAfricn Am (test 128 mL/min/1.7 >59 code = 79267-5) eGFR If Africn Am (test code = 148 mL/min/1.7 >59 81942-4) BUN/Creatinine Ratio (test 12-24 code = 3097-3) Sodium, Serum (test code = 136 mmol/L 353-113 7977-2) Potassium (test code = 2823-3) 4.6 mmol/L 3.5-5.2 Chloride (test code = 2074-0) 102 mmol/L 96-106 Carbon Dioxide, Total; Below 17 mmol/L 20-29 Low Threshold (test code = 2027-) Calcium, Serum (test code = 9.3 mg/dL 8.7-10.2 77396-3) Protein, Total (test code = 7.3 g/dL 6.0-8.5 2885-2) Albumin (test code = 1751-7) 4.3 g/dL 3.5-5.5 Globalulin, Total (test code = 3.0 g/dL 1.5-4.5 92995-1) A/G Ratio (test code = 1759-0) 1.4 1.2-2.2 Bilirubin, Total (test code = <0.2 0.0-1.2 1975-2) Alkaline Phosphatase (test 72 {IU/L} 39-117 code = 6768-6) AST (SGOT) (test code = 13 {IU/L} 0-40 1920-8) ALT (SGPT) (test code = 15 {IU/L} 0-32 1742-6) [facility] PhysiciansPregnancy [id number] 11:22:00 Test Item Value Reference Range Interpretation Comments Test, Urine (test code = Negative 2105-06) [facility]iciansBETA HCG QUANTITATIVE SERUM *WW*2018-10-13 23:21:00 Test Item Value Reference Range Interpretation Comments BHCG QUANT (test 2371.00 mIU/mL code = A17) BHCGQ (test code = QUANTITATIVE BHCG BHCQ) RESULT INTERPRETATION --- APPROXIMATE APPROXIMATE GESTATIONAL AGE HCG RANGE (WEEKS) (mIU/mL) - 0.2 - 1 5 - 50 1 - 2 50 - 500 2 - 3 100 - 5,000 3 - 4 500 - 10,000 4 - 5 1,000 - 50,000 5 - 6 10,000 - 100,000 6 - 8 15,000 - 200,000 8 - 12 10,000 - 100,000 --- PRO TIME AND PTT *WW*2018-10-13 22:57:00 Test Item Value Reference Range Interpretation Comments PT (test code = 11.8 s 9.8-13.6 TT) INR (test code = 1.0 INR) INRH (test code = SUGGESTED INRH) THERAPEUTIC RANGE FOR INR: 2.5 - 3.5 For Patients with Prosthetic Valves or Patients with recurrent Thromboembolic Events 2.0 - 3.0 For Most Other Applications PTT (test code = 30.7 s 20.2-38.0 PTT) PTTH (test code = To monitor the PTTH) effectiveness of heparin, we offer the Anti-Xa (Heparin Assay). It can be used for either unfractionated or LMW Heparin. Order Code is ANTI-XA BASIC METABOLIC PANEL 2018-10-13 22:49:00 Test Item Value Reference Range Interpretation Comments GLUCOSE (test code = 06D) 93 mg/dL 75-100 SODIUM (test code = 01A) 136 mmol/L 136-145 POTASSIUM (test code = 01B) 4.1 mmol/L 3.6-5.1 CHLORIDE (test code = 04A) 104 mmol/L 98-107 CO2 (test code = 02A) 25 mmol/L 22-32 ANION GAP (test code = ANG) 11.1 mmol/L BUN (test code = 05D) 8 mg/dL 7-18 CREATININE (test code = 03E) 0.7 mg/dL 0.4-1.1 BUN/CREA (test code = BCR) 11 12-20 L CALCIUM (test code = 09D) 8.6 mg/dL 8.3-9.5 CBC (INCLUDES AUTOMATED DIFFERENTIAL)*[id number] 22:40:00 Test Item Value Reference Range Interpretation Comments WBC (test code = WBC) 10.4 10\S\3/uL 4.5-11.0 RBC (test code = RBC) 4.55 10\S\6/uL 4.30-5.70 HGB (test code = HBG) 12.8 g/dL 12.0-15.5 HCT (test code = HCT) 38.6 % 35.0-44.0 MCV (test code = MCV) 84.8 fL 81.0-99.0 MCH (test code = MCH) 28.1 pg 27.0-31.0 MCHC (test code = MCHC) 33.2 g/dL 32.0-36.0 RDW (test code = RDW) 13.7 % 11.5-14.5 PLT (test code = PLT) 347 10\S\3/uL 130-400 MPV (test code = MPV) 10.2 fL 9.4-12.4 NEUTROP # (test code = NE#) 7.8 10\S\3/uL 1.6-8.0 LYMPH # (test code = LY#) 1.8 10\S\3/uL 1.1-3.5 MONOCYTE # (test code = MO#) 0.6 10\S\3/uL 0.0-1.1 EOSINOPH # (test code = EO#) 0.1 10\S\3/uL 0.0-0.7 BASOPHIL # (test code = BA#) 0.0 10\S\3/uL 0.0-0.3 IG # (test code = IG#) 0.03 10\S\3/uL 0.00-0.06 NRBC # (test code = NRBC#) 0.00 10\S\3/uL 0.00-0.01 NEUTROPH % (test code = NE%) 75.0 % 35.0-73.0 H LYMPH % (test code = LY%) 17.4 % 20.0-55.0 L MONO % (test code = MO%) 5.9 % 2.5-10.0 EOSINOPH % (test code = EO%) 1.2 % 0.0-5.0 BASOPHIL % (test code = BA%) 0.2 % 0.0-2.0 IG % (test code = IG%) 0.3 % 0.0-0.8 NRBC% (test code = NRBC%) 0.0 % 0.0-0.2 MANDIFF (test code = WMDIFF) NO NO RBC MORPH (test code = NORMAL WRBCMOR) URINALYSIS WITH MICRO *WW*2018-10-13 22:24:00 Test Item Value Reference Range Interpretation Comments COLOR (test code = COLU) YELLOW YELLOW CLARITY (test code = CLA) SLT HAZY CLEAR A GLUCOSE UR (test code = UA GLUCOSE) NEGATIVE NEGATIVE BILI UR (test code = BILE) NEGATIVE NEGATIVE KETONES UR (test code = SONDRA) NEGATIVE NEGATIVE SP GRAVITY (test code = SPGR) 1.010 1.005-1.030 PH UR (test code = PH) 6.0 4.5-8.0 PROTEIN UR (test code = PU) NEGATIVE NEGATIVE UROBIL UR (test code = UROQ) 0.2 EU/dL 0.2-1.0 NITRITE UR (test code = NITRITE) NEGATIVE NEGATIVE BLOOD UR (test code = UA BLOOD) 3+ NEGATIVE A LEUK ES UR (test code = LEUK) NEGATIVE NEGATIVE WBC UR (test code = UWBC) 1 /HPF 0-5 RBC UR (test code = URBC) 4 /HPF 0-2 H EPITH UR (test code = UEPC) NONE /LPF FEW A BACTERIA UR (test code = UBACT) FEW /HPF NONE A CAST UR (test code = CAST) /LPF NONE CRYSTAL UR (test code = CRYU) / LPF NONE MUCUS UR (test code = MUC) / HPF NONE AMORPH UR (test code = BETY) / HPF NONE TRICH UR (test code = UTRICH) /HPF NONE YEAST UR (test code = UY) /HPF NONE SPERM UR (test code = USPERM) /HPF NONE
[2020-11-01 19:51] LABS: Urine Blood Trace-intact (Negative); Urine Glucose Negative (Negative); Urine Protein 2+ (Negative); Urine Specific Gravity >=1.030 (1.005-1.030); Urine pH 5.5 (5.0-7.0)
[2020-11-01 20:14] LABS: Urine Specific Gravity/Preg 1.025 (1.005-1.030)
--- NOTE | 2020-11-01 21:17 | RAD REPORT ---
EXAM DESCRIPTION: US - Transvaginal OB - 11/01/2020 8:44 pm CLINICAL HISTORY: pelvic pain, vaginal bleeding COMPARISON: Transvaginal OB dated 04/25/2019 FINDINGS: No IUP is identified. The uterus is normal in size and appearance. The maternal adnexa and right ovary are within normal limits. Normal Doppler blood flow was demonstra everton to right ovary. The left ovary is obscured by bowel gas. IMPRESSION: No IUP is seen. In the setting of a positive HCG level, the findings would indicate a pr egnancy of unknown location. Prominent interval short-term follow-up ultrasound serially HCG measurem ent.
[2020-11-01 21:18] LABS: Absolute Lymphocytes (CBC) 2.2 K/uL (0.7-4.9); Basophils % 0.7 % (0-1.3); Hematocrit 37.8 % (36.0-45.0); Lymphocytes % 24.9 % (15.3-44.8); MPV 8.3 fL (7.6-11.3); RBC Red Blood Cell Count 4.79 M/uL (3.86-4.86)
[2020-11-01 21:46] LABS: BUN Blood Urea Nitrogen 8 mg/dL (7-18); Bicarbonate 24 mmol/L (21-32); Glucose Level 96 mg/dL (74-106); Potassium 3.5 mmol/L (3.5-5.1); Sodium Level 141 mmol/L (136-145)
[2020-11-01 21:54] LABS: HCG, Quantitative < 1 mIU/mL (1-3)
--- NOTE | 2020-11-01 23:04 | EDPHYS ---
Physician Documentation [facility] Name: Lacy Reyna Age: 25 yrs Sex: Female : 1995 Arrival Date: 11/01/2020 Time: 13:24 Bed 24 Private MD: ED Physician Rosalino Randle HPI: 11/01 23:00 This 25 yrs old Female presents to ER via Ambulatory with complaints of jmm Vaginal Bleeding - W/Pain. 23:00 The patient presents with vaginal bleeding that is. Onset: The symptoms/episode jmm began/occurred gradually. Modifying factors: The symptoms are alleviated by nothing, the symptoms are aggravated by nothing. Associated signs and symptoms: Pertinent positives: vaginal bleeding, Pertinent negatives: fever. This is a 25-year-old female with a history of hypertension the presents emerged part with complaints of pelvic pain and vaginal bleeding. Patient states she had a faint positive test at home. Patient has had multiple miscarriages in the past and is concerned. LMP was approximate 1 month ago.. Historical: - Allergies: 14:08 No Known Drug Allergies; ll1 - PMHx: 14:08 Hypertension; ll1 - PSHx: 14:08 section; ll1 - Immunization history:: Client reports having NOT received the Covid vaccine. Flu vaccine is up to date. - Social history:: Smoking status: Patient denies any tobacco usage or history of. ROS: 23:00 Constitutional: Negative for fever, chills, and weight loss, Cardiovascular: Negative jmm for chest pain, palpitations, and edema, Respiratory: Negative for shortness of breath, cough, wheezing, and pleuritic chest pain. 23:00 : Positive for vaginal bleeding. 23:00 All other systems are negative. Exam: 23:00 Constitutional: This is a well developed, well nourished patient who is awake, alert, jmm and in no acute distress. Head/Face: atraumatic. Eyes: EOMI, no conjunctival erythema appreciated ENT: Moist Mucus Membranes Neck: Trachea midline, Supple Chest/axilla: Normal chest wall appearance and motion. Cardiovascular: Regular rate and rhythm. No edema appreciated Respiratory: Normal respirations, no respiratory distress appreciated Abdomen/GI: Non distended, soft Back: Normal ROM Skin: General appearance color normal MS/ Extremity: Moves all extremities, no obvious deformities appreciated, no edema noted to the lower extremities Neuro: Awake and alert, normal gait Psych: Behavior is normal, Mood is normal, Patient is cooperative and pleasant Vital Signs: 14:06 BP 168 / 100; Pulse 96; Resp 18; Temp 97.6; Pulse Ox 98% ; Weight 140.61 kg; Height 5 ll1 ft. 4 in. (162.56 cm); Pain 9/10; 22:28 BP 155 / 96; Pulse 81; Resp 16 S; Pulse Ox 100% on R/A; bb 14:06 Body Mass Index 53.21 (140.61 kg, 162.56 cm) ll1 MDM: 19:53 Patient medically screened. [facility] 23:02 Data reviewed: vital signs, nurses notes. Counseling: I had a detailed discussion with mc the patient and/or guardian regarding: the historical points, exam findings, and any diagnostic results supporting the discharge/admit diagnosis, lab results, radiology results, the need for outpatient follow up, to return to the emergency department if symptoms worsen or persist or if there are any questions or concerns that arise at home. ED course: Patient is alert nontoxic in appearance in the ED. Ultrasound reveals no IUP. Quant hCG is negative. Patient is otherwise advised to follow-up with OB and otherwise given strict return precautions. Patient understood and agrees plan of care.. 11/01 19:51 Order name: Urine Dipstick-Ancillary; Complete Time: 19:53 [facility] 11/01 19:54 Order name: Abo/rh Typing [facility] 11/01 19:54 Order name: Basic Metabolic Panel; Complete Time: 22:18 [facility] 11/01 19:54 Order name: CBC with Diff; Complete Time: 21:24 [facility] 11/01 19:54 Order name: Quantitative Hcg; Complete Time: 22:18 [facility] 11/01 19:55 Order name: Urine --Ancillary (enter results); Complete Time: 20:28 ds4 11/01 14:54 Order name: Urine Test (obtain specimen); Complete Time: 19:54 kb 11/01 19:54 Order name: IV Saline Lock; Complete Time: 21:46 [facility] 11/01 19:54 Order name: Labs collected and sent; Complete Time: 21:46 [facility] 11/01 19:54 Order name: NPO; Complete Time: 21:46 [facility] 11/01 19:54 Order name: Urine Dipstick-Ancillary (obtain specimen); Complete Time: 19:54 [facility] 11/01 20:14 Order name: Transvaginal OB; Complete Time: 21:24 EDMS Administered Medications: No medications were administered Disposition Summary: 11/01/20 23:03 Discharge Ordered Location: Home [facility] Condition: Stable [facility] Diagnosis - Dysfunctional uterine bleeding jm - UTI/ Urinary tract infection, site not specified [facility] Followup: [facility] - With: Private Physician - When: 2 - 3 days - Reason: Recheck today's complaints, Continuance of care, Re-evaluation by your physician Discharge Instructions: - Discharge Summary Sheet [facility] - Urinary Tract Infection, Adult [facility] Forms: - Medication Reconciliation Form [facility] - Thank You Letter [facility] - Antibiotic Education [facility] - Prescription Opioid Use [facility] Prescriptions: - Cephalexin 500 mg Oral Capsule - take 1 capsule by ORAL route every 8 hours for 10 days; 30 capsule; Refills: 0, [facility] Product Selection Permitted Signatures: Dispatcher [employer] EDMS Jessica Subramanian, TANVI-Nabeel BHARDWAJP-Aston Patel PA PA m Catina Rocha, RN RN ll1 Corrections: (The following items were deleted from the chart) 19:54 14:54 Urine Dipstick-Ancillary ordered. kb ds4 20:13 19:58 1st Trimest Single 1st Fetus+US.RAD.BRZ ordered. [facility] EDMS
--- NOTE | 2020-11-01 23:04 | ER ---
Nurse's Notes [facility] Name: Lacy Reyna Age: 25 yrs Sex: Female : 1995 Arrival Date: 11/01/2020 Time: 13:24 Bed 24 Private MD: Diagnosis: Dysfunctional uterine bleeding;UTI/ Urinary tract infection, site not specified Presentation: 11/01 14:06 Chief complaint: Patient states: Vaginal bleeding for 4 days. Had two positive ll1 tests that were both faintly positive. G5, P1. Coronavirus screen: Client denies travel out of the [place] in the last 14 days. At this time, the client does not indicate any symptoms associated with coronavirus-19. Ebola Screen: Patient denies travel to an Ebola-affected area in the 21 days before illness onset. Initial Sepsis Screen: Does the patient meet any 2 criteria? HR > 90 bpm. No. Patient's initial sepsis screen is negative. Does the patient have a suspected source of infection? Yes: Other: vag bleed. Risk Assessment: Do you want to hurt yourself or someone else? Patient reports no desire to harm self or others. Onset of symptoms was October 28, 2020. 14:06 Method Of Arrival: Ambulatory ll1 14:06 Acuity: FILI 3 ll1 Historical: - Allergies: 14:08 No Known Drug Allergies; ll1 - PMHx: 14:08 Hypertension; ll1 - PSHx: 14:08 section; ll1 - Immunization history:: Client reports having NOT received the Covid vaccine. Flu vaccine is up to date. - Social history:: Smoking status: Patient denies any tobacco usage or history of. Screenin:00 Abuse screen: Denies threats or abuse. Nutritional screening: No deficits noted. bb Tuberculosis screening: No symptoms or risk factors identified. Fall Risk None identified. Assessment: 20:00 General: Appears in no apparent distress. obese, Behavior is cooperative, crying. Pain: bb Complains of pain in pelvis. Neuro: Level of Consciousness is awake, alert, obeys commands, Oriented to person, place, time, situation. Cardiovascular: Capillary refill < 3 seconds Patient's skin is warm and dry. Respiratory: Respiratory effort is even, unlabored. GI: Abdomen is obese. : Reports vaginal bleeding that is. Derm: Skin is pink, warm \T\ dry. Musculoskeletal: Circulation, motion, and sensation intact. 22:27 Reassessment: No changes from previously documented assessment. Patient is alert, bb oriented x 3, equal unlabored respirations, skin warm/dry/pink. IV site intact, no erythema or edema noted. 23:26 Reassessment: Patient is alert, oriented x 3, equal unlabored respirations, skin bb warm/dry/pink. pt verbalized understanding of and agrees to plan of care discharge instructions given pt ambulated with steady gait to exit. Vital Signs: 14:06 BP 168 / 100; Pulse 96; Resp 18; Temp 97.6; Pulse Ox 98% ; Weight 140.61 kg; Height 5 ll1 ft. 4 in. (162.56 cm); Pain 9/10; 22:28 BP 155 / 96; Pulse 81; Resp 16 S; Pulse Ox 100% on R/A; bb 14:06 Body Mass Index 53.21 (140.61 kg, 162.56 cm) ll1 ED Course: 13:24 Patient arrived in ED. ds1 14:08 Triage completed. ll1 14:08 Arm band placed on. ll1 19:15 Aston Uribe PA is PHCP. m 19:15 Rosalino Randle MD is Attending Physician. jmm 20:00 Patient has correct armband on for positive identification. Bed in low position. Call bb light in reach. 20:18 Yamila Lopez, RN is Primary Nurse. zb 20:30 Initial lab(s) drawn, by co, sent to lab. Inserted saline lock: 20 gauge in left bb antecubital area, using aseptic technique. Blood collected. 20:44 Transvaginal OB In Process Unspecified. EDMS 20:48 Primary Nurse role handed off by Yamila Lopez, PADDY bb 20:48 Elvi Koehler, PADDY is Primary Nurse. bb 23:27 No provider procedures requiring assistance completed. IV discontinued, intact, bb bleeding controlled, No redness/swelling at site. Pressure dressing applied. Administered Medications: No medications were administered Outcome: 23:03 Discharge ordered by . mc 23:27 Discharged to home ambulatory. bb 23:27 Condition: stable 23:27 Discharge instructions given to patient, Instructed on discharge instructions, follow up and referral plans. Demonstrated understanding of instructions, follow-up care, medications, Prescriptions given X 1. 23:27 Patient left the ED. bb Signatures: Dispatcher [employer] EDMS Aston Uribe PA PA jmm Sanford, Demi ds1 Elvi Koehler RN RN bb Catina Rocha RN RN ll1 Yamila Lopez RN RN zb
[2020-11-02 00:46] VITALS: TEMP 97.6
[2020-11-02 00:48] VITALS: BP 155/96; O2SAT 100
== END 2020-11-01 23:27 | disposition home or self-care (01) ==
LOC: ER 13:13
DX: N39.0 Urinary tract infection, site not specified (principal); I10 Essential (primary) hypertension
CPT/HCPCS: 36415; 76817; 80048; 81003; 81025; 84702; 85025; 86900; 86901; 99284